=== PATIENT | male | born 1960 | race Caucasian/White ===

== ENCOUNTER 2020-07-01 06:36 | Outpatient (CLI) | payer BC, SELFPAY ==
[2020-07-01 08:03] LABS: Hematocrit 48.6 % (42.0-52.0); Hemoglobin 16.2 g/dL (14.0-18.0); Mean Corpuscular HGB Conc 33.3 g/dl (32-36); Mean Corpuscular Hemoglobin 29.9 pg (26-34); Mean Corpuscular Volume 89.8 fl (80-100); Mean Platelet Volume 9.6 fl (7.4-10.4); Platelet Count Result 233 k/mm3 (150-375); Red Blood Count 5.41 M/mm3 (4.6-6.20); Red Cell Distribution Width 13.3 % (11.5-14.5); White Blood Count 7.5 K/mm3 (4.5-10.0)
[2020-07-01 08:19] LABS: Alanine Aminotransferase 32 U/L (4-50); Albumin Level 4.6 g/dL (3.5-5.1); Alkaline Phosphatase 59 U/L (38-126); Anion Gap 9 mmol/L (8-16); Aspartate Amino Transferase 32 U/L (17-59); Bilirubin,Total 0.9 mg/dL (0.2-1.3); Blood Urea Nitrogen 19 mg/dL (9-20); Calcium 9.6 mg/dL (8.4-10.2); Carbon Dioxide 32 mmol/L (22-30); Chloride 100 mmol/L (98-107); Cholesterol 164 mg/dL (0-200); Estimated Glomerular Filt Rate > 60; Glucose 103 mg/dL (75-110); HDL Direct 33 mg/dL; Potassium 4.6 mmol/L (3.4-5.0); Sodium 141 mmol/L (137-145); Triglycerides 324 mg/dL (<150)
[2020-07-01 08:31] LABS: LDL Cholesterol Direct 95 mg/dL
[2020-07-01 08:50] LABS: Prostate Specific Antigen 2.4 ng/mL (< OR = 4.0)
== END 2020-07-01 06:37 | disposition home or self-care (01) ==
PROVIDERS: PCP Family Medicine; Visit Provider Family Medicine
DX: E78.5 Hyperlipidemia, unspecified (principal); I10 Essential (primary) hypertension; Z12.5 Encounter for screening for malignant neoplasm of prostate
CPT/HCPCS: 36415; 80053; 80061; 84153; 84443; 85027; G0103

== ENCOUNTER → 2021-09-15 09:47 | Outpatient (CLI) | payer BC, SELFPAY ==
[2021-09-15 21:02] LABS: SARS-CoV-2 RNA PCR Positive
== END ==
PROVIDERS: PCP Family Medicine; Visit Provider Nurse Practitioner Family
DX: U07.1 COVID-19 (principal)
CPT/HCPCS: C9803; U0003; U0005

== ENCOUNTER 2022-08-12 13:55 | Outpatient (CLI) | payer BC, SELFPAY ==
--- NOTE | 2022-08-12 14:01 | ECG_ITS ---
Measurements Intervals [place] Rate: 87 P: 56 WV: 158 QRS: -52 QRSD: 146 T: 3 QT: 378 QTc: 456 Interpretive Statements SINUS RHYTHM RIGHT BUNDLE BRANCH BLOCK [120+ ms QRS DURATION, UPRIGHT V1, 40+ ms S IN I/aVL/V4/V5/V6] LEFT ANTERIOR FASCICULAR BLOCK [QRS AXIS <= -45, QR IN I, RS IN II] NO PREVIOUS ECG AVAILABLE FOR COMPARISON Electronically Signed On 08-13-2022 7:41:07 [employer] by Kings Irby M.D.
== END 2022-08-12 13:56 | disposition home or self-care (01) ==
LOC: ANHLAB 13:57
PROVIDERS: PCP Family Medicine; Visit Provider Nurse Practitioner Family
DX: E78.5 Hyperlipidemia, unspecified (principal); I10 Essential (primary) hypertension; R97.20 Elevated prostate specific antigen [PSA]
CPT/HCPCS: 93005

== ENCOUNTER 2023-12-08 05:44 | Emergency (ER) | payer BC, SELFPAY ==
--- NOTE | ~2023-12-08 | XR_ITS ---
Clinical Indication: Chest pain PA and lateral views of the chest: Comparison: 05/14/2019 Findings: The lungs are clear, without evidence of focal consolidation or pleural effusion. Cardiome diastinal silhouette is within normal limits. Bones and soft tissues are unremarkable. Impression: Normal chest. Reviewed, dictated and finalized at location . Impression: Normal chest.
--- NOTE | ~2023-12-08 | US_ITS ---
EXAMINATION: US right upper quadrant DATE: 12/08/2023 08:37 INDICATION: Right upper quadrant abdominal pain. TECHNIQUE: Multiple grayscale and Doppler ultrasound images of the abdomen were obtained. COMPARISON: CT abdomen and pelvis 12/08/2023 FINDINGS: The pancreas is obscured by bowel gas. The liver is normal without focal lesion. There is n ormal flow in main portal vein. The gallbladder is normal in size and contains gallstones. No gallbla dder wall thickening or sonographic Grover sign. The common duct is normal and measures 5 mm. IMPRESSION: 1. Cholelithiasis. No evidence of acute cholecystitis. Reviewed, dictated and finalized at location [facility].
--- NOTE | ~2023-12-08 | CT_ITS ---
Non-contrast CT scan of the Abdomen and Pelvis Clinical indication: Kidney stone Technique: 2.5 mm axial scans were obtained through the abdomen and pelvis without intravenous or or al contrast. Dose reduction technique was used on this scan by utilizing automated exposure control a nd iterative reconstruction technique. The dose-length product (DLP) was 672.31 mGy-cm. Findings: Images through the lung bases reveal no abnormalities. Punctate nonobstructing right renal stone present. No left renal stone. No ureteral stone or hydronep hrosis on either side. The liver, spleen, pancreas, and adrenals appear normal. Multiple small calcified gallstones are pres ent. There are atherosclerotic calcifications of the aorta. IVC filter present. There is no evidence of bowel obstruction. There is a prominent diverticulum at the proximal transver se colon surrounding inflammatory change and mild colonic wall thickening in this region. No abscess or free air. Images through the pelvis were performed. There is no evidence of ascites or lymphadenopathy. Urinary bladder unremarkable. No pelvic mass seen. No ascites. Impression: Acute diverticulitis at the proximal transverse colon. No abscess or free air. Punctate nonobstructing right renal stone. Cholelithiasis. Reviewed, dictated and finalized at [facility]. Impression: Acute diverticulitis at the proximal transverse colon. No abscess or free air. Punctate nonobstructing right renal stone. Cholelithiasis.
--- NOTE | 2023-12-08 05:48 | ECG_ITS ---
Measurements Intervals [place] Rate: 89 P: 45 NV: 163 QRS: -52 QRSD: 141 T: 5 QT: 375 QTc: 457 Interpretive Statements SINUS RHYTHM POSSIBLE LEFT ATRIAL ENLARGEMENT [-0.1mV P WAVE IN V1/V2] RIGHT BUNDLE BRANCH BLOCK [120+ ms QRS DURATION, UPRIGHT V1, 40+ ms S IN I/aVL/V4/V5/V6] LEFT ANTERIOR FASCICULAR BLOCK [QRS AXIS <= -45, QR IN I, RS IN II] POSSIBLE LEFT VENTRICULAR HYPERTROPHY [VOLTAGE CRITERIA PLUS LAE OR QRS WIDENING] COMPARED TO ECG 08/12/2022 14:25:46 NO SIGNIFICANT CHANGES Electronically Signed On 12-08-2023 11:04:33 CDT by Fallon Cruz M.D.
[2023-12-08 05:50] VITALS: BP 126/76; PULSE 90; RESP 15; TEMP 36.6; O2SAT 97
[2023-12-08] MEDS: ASPIRIN 81 MG CHEWABLE TABLET 324 MG PO (05:57)
[2023-12-08 06:06] LABS: Basophils Percent Auto 0.2 % (0.2-1.2); Eosinophils Percent Auto 0.1 % (0-4.4); Hematocrit 56.4 % (42.0-52.0); Hemoglobin 18.4 g/dL (14.0-18.0); Immature Granulocyte Percent A 0.6 % (0-0.5); Lymphocytes Absolute Auto 1.62 K/mm3 (0.9-3.2); Lymphocytes Percent Auto 9.2 % (18.3-44.2); Mean Corpuscular HGB Conc 32.6 g/dl (32-36); Mean Corpuscular Hemoglobin 29.1 pg (26-34); Mean Corpuscular Volume 89.2 fl (80-100); Mean Platelet Volume 9.1 fl (7.4-10.4); Monocytes Percent Auto 11.5 % (2.6-8.5); Neutrophils Absolute Auto 13.8 K/mm3 (1.3-6.7); Neutrophils Percent Auto 78.4 % (45.5-73.1); Platelet Count Result 200 k/mm3 (150-375); Red Blood Count 6.32 M/mm3 (4.6-6.20); Red Cell Distribution Width 15.7 % (11.5-14.5); White Blood Count 17.6 K/mm3 (4.5-10.0)
[2023-12-08 06:17] LABS: Alanine Aminotransferase 30 U/L (6-50); Albumin Level 4.7 g/dL (3.5-5.1); Alkaline Phosphatase 57 U/L (38-126); Anion Gap 8 mmol/L (4-12); Aspartate Amino Transferase 20 U/L (17-59); Bilirubin,Total 2.3 mg/dL (0.2-1.3); Blood Urea Nitrogen 18 mg/dL (9-20); Carbon Dioxide 32 mmol/L (22-30); Chloride 98 mmol/L (98-107); Estimated CRCL calculation 52 ml/min; Estimated Glomerular Filt Rate 55; Glucose 115 mg/dL (65-110); Lipase 27 U/L (23-300); Potassium 4.2 mmol/L (3.4-5.0); Sodium 138 mmol/L (137-145)
[2023-12-08 06:28] LABS: Troponin I < 0.012 ng/mL (0.000-0.034)
[2023-12-08 06:40] LABS: INR 1.1; Prothrombin Time 14.3 Seconds (11.1-14.7)
[2023-12-08 06:41] LABS: Partial Thromboplastin Time 29.4 Seconds (22.3-36.8)
[2023-12-08 07:23] VITALS: BP 127/75; PULSE 78; RESP 20; O2SAT 94
--- NOTE | 2023-12-08 07:47 | ED.GENADULT ---
HPI - General Adult General Chief complaint: Chest Pain Stated complaint: cp, abdominal pain Time Seen by Provider: 12/08/23 06:58 History of Present Illness HPI narrative: Patient is a 63-year-old male who presents ER with multiple issues. The main issue is he developed abdominal pain last night. It is in the lower abdomen and achy. He reports he had to urinate multiple times throughout the night which is a typical form. No nausea or vomiting. He does have history of kidney stones. The last time he had a kidney stone the symptoms were more intense. Patient is also reporting some epigastric pain it has been more long-term. Denies any aggravation with eating or drinking. He also reports that he is scheduled to have cardiac stents 1 week from today. He had had a CT scan showing calcium buildup in his coronaries recently. He did have chest pain 2 days ago that went away after some nitro. He does think it may have return last night but it was more in his abdomen than in his chest. Two days ago the pain was sharp and achy in left side of the chest without radiation. He is not having exertional chest pain. No diaphoresis. No history of gallstones. Patient is tender in the right upper quadrant with guarding. Related Data Home Medications Medication Instructions Recorded Confirmed aspirin 81 mg tablet,delayed 81 mg PO DAILY 09/16/20 11/08/23 release (Adult Aspirin Regimen) anastrozole 1 mg tablet 1 mg PO .every other week 11/08/23 11/08/23 ranolazine 500 mg tablet,extended 500 mg PO Q12H 11/08/23 11/08/23 release,12 hr testosterone cypionate 200 mg/mL 140 mg IM WEEKLY 11/08/23 11/08/23 intramuscular kit Allergies Allergy/AdvReac Type Severity Reaction Status Date / Time lisinopril AdvReac Mild Cough Verified 11/08/23 07:33 Review of Systems Review of Systems: All systems reviewed & are unremarkable except as noted in HPI and below Constitutional: Constitutional: Reports no additional constitutional complaints ENT: Reports system reviewed and no additional complaints, except as documented Cardiovascular: Cardiovascular: Reports chest pain, Denies rapid heart rate and Denies radiating jaw, neck or arm pain Respiratory: Respiratory: Reports no additional respiratory complaints Gastrointestinal: Gastrointestinal: Reports abdominal pain, Denies heartburn, Denies diarrhea, Denies nausea and Denies vomiting Genitourinary: Genitourinary: Denies hematuria, Denies dysuria and Reports urinary frequency Musculoskeletal: Musculoskeletal: Reports no additional musculoskeletal complaints [facility] Past Medical History Medical History BMI 28.0-28.9,adult BMI 29.0-29.9,adult Elevated PSA History of colon polyps History of kidney stones History of melanoma History of squamous cell carcinoma Hypertension Low back pain Sleep apnea Sleep disturbance Surgical History Surgical History History of hernia repair Family History Family History Father Mother Hypertension Sibling No problems noted. Other Brain cancer Lung cancer Social History Social History (Updated 11/08/23 @ 07:35 by Julianna Armendariz) Smoking status: Never smoker Second hand tobacco smoke exposure: Yes Alcohol intake: current Alcohol use details: rarely Substance use: never Substance use type: does not use Do You Feel Safe in your Home?: Yes Lack of Transportation: No Lack of Food: Never True Current Housing: I Have Housing Concerned About Future Housing: No Difficulty Paying Gas/Electric Bills: No Difficulty Paying for Meds: No Currently Unemployed: No Education: High School Diploma/GED Difficulty w/ Childcare or Family Care: No Living arrangements: with family Occupation/Education: occupation Additional occupation/education comment
[2023-12-08] MEDS: ONDANSETRON INJ 4 MG/2 ML VIAL IV PUSH (08:03)
[2023-12-08] MEDS: MORPHINE SULFATE (*CRX) 4 MG/ML INJ IV PUSH (08:06)
[2023-12-08 09:01] VITALS: BP 112/69; PULSE 74; RESP 20; O2SAT 93
[2023-12-08 09:29] LABS: Troponin I < 0.012 ng/mL (0.000-0.034)
[2023-12-08 09:50] VITALS: TEMP 36.6
== END 2023-12-08 09:51 | disposition home or self-care (01) ==
PROVIDERS: Emergency Medicine; Emergency Provider Emergency Medicine; PCP Family Medicine
DX: K57.32 Diverticulitis of large intestine without perforation or abscess without bleeding (principal); K80.20 Calculus of gallbladder without cholecystitis without obstruction; I10 Essential (primary) hypertension; G47.30 Sleep apnea, unspecified; Z87.442 Personal history of urinary calculi; Z86.010 Personal history of colon polyps; Z85.820 Personal history of malignant melanoma of skin; Z79.82 Long term (current) use of aspirin; Z77.22 Contact with and (suspected) exposure to environmental tobacco smoke (acute) (chronic); N20.0 Calculus of kidney
CPT/HCPCS: 36415; 71046; 74176; 76705; 80053; 83690; 84484; 85025; 85610; 85730; 93005; 96374; 96375; 99284; A9270; J2270; J2405

== ENCOUNTER 2023-12-31 12:30 | Outpatient (CLI) | payer BC, SELFPAY ==
--- NOTE | ~2023-12-31 | CT_ITS ---
EXAMINATION: CT abdomen pelvis wo con DATE: 12/31/2023 13:06 INDICATION: Diverticulitis TECHNIQUE: Computed tomography (CT) of the abdomen and pelvis was performed without intravenous contr ast. Automated exposure control and iterative reconstruction technique were employed. Exam dose: 624 .63 mGy-cm total exam DLP. COMPARISON: December 08, 2023 right upper quadrant abdominal ultrasound examination December 08, 2023 CT abdomen pelvis FINDINGS: Mild discoid atelectasis or scarring at the lung bases. No pulmonary basilar consolidation. Normal heart size. Prominent coronary artery calcification. No pericardial or pleural effusion. There are multiple stones in the dependent aspect of the gallbladder up to approximately 6.7 mm. No g allbladder wall thickening or pericholecystic fluid or fat stranding. No bile duct or pancreatic duct dilatation. The liver, spleen, pancreas, and adrenal glands are unremarkable. Approximately 2 mm nonobstructing lower pole left renal calculus. No other urinary tract calculus or hydroureteronephrosis. The urinary bladder is unremarkable. Dysplastic quadrant calcification. There is extensive atherosclerotic calcification but normal caliber of the abdominal aorta. There is an IVC filter. No intraperitoneal or retroperitoneal pelvic mass lesion or adenopathy or ascites. Normal appendix. There is minimal residual pericolic fat stranding at the proximal transverse colon, with considerable improvement of the inflammatory changes noted in this area since December 08, 2023. Diverticulosis of the left and right colon. No bowel obstruction or intraperitoneal free air. Old healed bilateral pelvic fractures. No suspicious osteolytic or osteoblastic lesions. IMPRESSION: Considerable interval improvement of inflammatory change at the acute diverticulitis at the proximal transverse colon, with minimal residual pericolic inflammation Diverticulosis of the right colon Normal appendix Cholelithiasis IVC filter Reviewed, dictated and finalized at [facility]. Reviewed, dictated and finalized at location [facility]. IMPRESSION: Considerable interval improvement of inflammatory change at the ac michael diverticulitis at the proximal transverse colon, with minimal residual veronica colic inflammation Diverticulosis of the right colon Normal appendix Cholelithiasis IVC filter
== END 2023-12-31 12:31 | disposition home or self-care (01) ==
LOC: ANHIMG 12:30
PROVIDERS: PCP Family Medicine; Visit Provider Nurse Practitioner Adult Health
DX: K57.30 Diverticulosis of large intestine without perforation or abscess without bleeding (principal); K80.20 Calculus of gallbladder without cholecystitis without obstruction
CPT/HCPCS: 74176

== ENCOUNTER 2024-05-13 09:22 | Emergency (ER) | payer BC, SELFPAY ==
--- NOTE | ~2024-05-13 | CT_ITS ---
Non-contrast Head CT History: Status post fall Technique: Axial non-contrast imaging of the brain was performed. Dose reduction technique was used on this scan by utilizing automated exposure control and iterative reconstruction technique. The dose -length product (DLP) was 605.33 mGy-cm. Findings: There is no evidence of intracranial hemorrhage, mass lesion, or acute infarct. There is b ifrontal atrophy. The ventricles and subarachnoid spaces are normal in size. The calvarium appears n ormal. The visualized paranasal sinuses and mastoid air cells are clear. Impression: No acute abnormality seen. Bifrontal atrophy. Reviewed, dictated and finalized at location . Impression: No acute abnormality seen. Bifrontal atrophy.
--- NOTE | ~2024-05-13 | XR_ITS ---
AP and oblique views of the right ribs, and PA chest radiograph Clinical History: Pain Findings: No rib fracture is seen. Osseous alignment is anatomic. Lungs are clear, without focal cons olidation or pleural effusion. Cardiomediastinal contour is within normal limits. Soft tissues are un remarkable. IVC filter noted. Impression: No rib fracture is seen. Clear lungs. Reviewed, dictated and finalized at location . Impression: No rib fracture is seen. Clear lungs.
[2024-05-13 09:33] VITALS: BP 128/77; PULSE 87; RESP 17; TEMP 36.6; O2SAT 98
--- NOTE | 2024-05-13 10:42 | ED.BACK ---
HPI - Back Pain/Injury General Chief Complaint: Back Pain/Injury Stated Complaint: fall, back pain Time Seen by Provider: 05/13/24 10:40 Source: patient Mode of arrival: ambulatory Limitations: no limitations History of Present Illness HPI Narrative: Patient presents with complaint of mid/upper back pain rated 6/10 severity after a fall he sustained on . He was pulling on a tarp on the rope broke and he fell to the ground striking his back. He did not hit his head although he is on Brilinta and aspirin for history of left sided cardiac stents. He also takes a statin. He sustained an abrasion to his left elbow. He does not recall his last tetanus shot although he states it was many years ago. He underwent biopsy for skin cancer on areas of his mid back approximately 1 and half weeks ago. He denies any chest pain, shortness of breath, hematuria, or bloody stool. He has not taken any pain medications while at home. Related Data Home Medications Medication Instructions Recorded Confirmed aspirin 81 mg tablet,delayed 81 mg PO DAILY 09/16/20 01/13/24 release (Adult Aspirin Regimen) clopidogrel 75 mg tablet (Plavix) 75 mg PO DAILY 01/13/24 01/13/24 ticagrelor 90 mg tablet (Brilinta) 90 mg PO Q12H 01/13/24 Allergies Allergy/AdvReac Type Severity Reaction Status Date / Time lisinopril AdvReac Mild Cough Verified 01/13/24 07:40 [facility] Past Medical History Medical History BMI 26.0-26.9,adult Chronic anticoagulation Brilinta & 81 mg aspirin Elevated PSA Hematuria History of colon polyps History of kidney stones History of melanoma History of squamous cell carcinoma Hypertension Leukocytosis Low back pain Male hypogonadism Polycythemia Renal calculus, right Sleep apnea Sleep disturbance Surgical History Surgical History History of heart artery stent left side History of hernia repair Family History Family History (Updated 02/10/24 @ 08:34 by Caroline Josue RN) Father Mother Hypertension Lung cancer Sibling No problems noted. Other Brain cancer Social History Social History Smoking status: Never smoker Second hand tobacco smoke exposure: Yes Alcohol intake: current Alcohol use details: rarely Substance use: never Substance use type: does not use Do You Feel Safe in your Home?: Yes Lack of Transportation: No Lack of Food: Never True Current Housing: I Have Housing Concerned About Future Housing: No Difficulty Paying Gas/Electric Bills: No Difficulty Paying for Meds: No Currently Unemployed: No Education: High School Diploma/GED Difficulty w/ Childcare or Family Care: No Living arrangements: with family Occupation/Education: occupation 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 HEAD: Normocephalic, atraumatic. EYES: Non injected, non icteric ENT: Nares clear, no rhinorrhea or epistaxis. NECK: Supple. CHEST: Speaking in full sentences. No respiratory distress. Lungs clear to auscultation bilaterally without wheezes, crackles. BACK: No subcutaneous emphysema/crepitus. No obvious bony deformity although patient does have subscapular/posterior rib tenderness to palpation. No tenderness to palpation of cervical, thoracic, or lumbar spine which are midline without bony step-off. HEART: Regular rate and rhythm. . ABDOMEN: Soft, nondistended. EXTREMITIES: Normal range of motion. No lower extremity edema. SKIN: Warm, dry. Wound on left back from recent biopsy that is otherwise well healing and does not show signs of infection/induration although it is tenderness to palpation. Small well-healing ab
[2024-05-13] MEDS: TETANUS,DIPHTHERIA,AC PERTUSSIS ADULT (0.5 ML) BOOSTRIX IM (11:10)
[2024-05-13] MEDS: HYDROcodone/acetaminophen (*CRX) 5-325 MG TABLET 1 TAB PO (11:10)
[2024-05-13] MEDS: ACETAMINOPHEN 325 MG TABLET 650 MG PO (11:53)
[2024-05-13] MEDS: LIDOCAINE 5% PATCH 1 PATCH TRANSDERM (11:54)
[2024-05-13 11:59] VITALS: BP 130/85; PULSE 75; RESP 16; TEMP 36.9; O2SAT 99
== END 2024-05-13 12:01 | disposition home or self-care (01) ==
PROVIDERS: Emergency Provider Student in an Organized Health Care Education/Training Program; PCP Family Medicine
DX: G31.9 Degenerative disease of nervous system, unspecified (principal); M54.9 Dorsalgia, unspecified; Z23 Encounter for immunization; Z79.01 Long term (current) use of anticoagulants; Z87.442 Personal history of urinary calculi; I10 Essential (primary) hypertension; G47.30 Sleep apnea, unspecified; W19.XXXA Unspecified fall, initial encounter
CPT/HCPCS: 70450; 71101; 90471; 90715; 99284; A9270

== ENCOUNTER 2024-05-30 13:45 | Outpatient (RCR) | payer BC, SELFPAY | END 2024-05-30 15:51 | disposition home or self-care (01) | LOC: ANHCPREHAB 13:45 | PROVIDERS: PCP Family Medicine; Visit Provider Internal Medicine Cardiovascular Disease | DX: Z95.5 Presence of coronary angioplasty implant and graft (principal) | CPT/HCPCS: 93798 ==

== ENCOUNTER 2024-08-06 08:27 | Emergency (ER) | payer BC, SELFPAY ==
[2024-08-06 08:38] VITALS: BP 126/89; PULSE 107; RESP 18; TEMP 36.9; O2SAT 96
--- NOTE | 2024-08-06 09:06 | ED_ITS ---
HPI - Nausea/Vomiting/Diarrhea General Chief complaint: Nausea/Vomiting/Diarrhea Stated complaint: Stomach Pain/Diarrhea/Sore Throat Time Seen by Provider: 08/06/24 08:56 Source: patient and RN notes reviewed Mode of arrival: ambulatory Limitations: no limitations History of Present Illness HPI Narrative: Patient presents today complaining of a 6 day history of diarrhea, usually in the evenings. Patient states 6 +times per day. Denies blood or mucus in the stool. Denies abdominal pain, but does report ?gurgling?. States the stool was liquid, but now is loose. He has tried some Pepto twice with some relief. Denies chest pain, shortness of breath, fever. States he does have some hoarseness as well as a metallic taste and belching. History of diverticulitis, but states these current symptoms are not similar to previous diverticulitis episodes. Related Data Home Medications Medication Instructions Recorded Confirmed aspirin 81 mg tablet,delayed 81 mg PO DAILY 09/16/20 08/06/24 release (Adult Aspirin Regimen) ticagrelor 90 mg tablet (Brilinta) 90 mg PO Q12H 01/13/24 08/06/24 rosuvastatin 40 mg tablet 40 mg PO DAILY 08/06/24 08/06/24 Allergies Allergy/AdvReac Type Severity Reaction Status Date / Time lisinopril AdvReac Mild Cough Verified 08/06/24 08:38 Review of Systems Review of Systems: CONSTITUTIONAL: Denies body aches, fever, chills, or sweats. EYES: Denies visual changes, redness, or discharge. ENT: Denies rhinorrhea, congestion, sore throat, or otalgia. CARDIOVASCULAR: Denies chest pain, palpitations, or edema. RESPIRATORY: Denies cough or dyspnea. GASTROINTESTINAL: Denies abdominal pain, nausea, vomiting. + diarrhea, belching GENITOURINARY: Denies dysuria or hematuria. SKIN: Denies rash, itching, or wounds. MUSCULOSKELETAL: Denies back pain, joint pain, or myalgia. NEUROLOGIC: Denies headache, numbness, tingling, or weakness. PSYCH: Denies depression or anxiety. [facility] Past Medical History Medical History BMI 26.0-26.9,adult Chronic anticoagulation Brilinta & 81 mg aspirin Elevated PSA Hematuria History of colon polyps History of kidney stones History of melanoma History of squamous cell carcinoma Hypertension Leukocytosis Low back pain Male hypogonadism Polycythemia Renal calculus, right Sleep apnea Sleep disturbance Surgical History Surgical History History of heart artery stent left side History of hernia repair Family History Family History Father Mother Hypertension Lung cancer Sibling No problems noted. Other Brain cancer Social History Social History Smoking status: Never smoker Second hand tobacco smoke exposure: Yes Alcohol intake: current Alcohol use details: rarely Substance use: never Substance use type: does not use Do You Feel Safe in your Home?: Yes Lack of Transportation: No Lack of Food: Never True Current Housing: I Have Housing Concerned About Future Housing: No Difficulty Paying Gas/Electric Bills: No Difficulty Paying for Meds: No Currently Unemployed: No Education: High School Diploma/GED Difficulty w/ Childcare or Family Care: No Living arrangements: with family Occupation/Education: occupation 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 Please see nursing chart for further information. There is no relevant family history pertinent to the presenting complaint Exam Narrative: GENERAL: Well-appearing, well-nourished, and in no acute distress. HEAD: Normocephalic, atraumatic. EYES: EOMI. No redness or drainage. Conjunctivae normal. ENT: Mucous membranes pink and moist. Nares clear. No rhinorrhea. Throat normal. Uvula midline. NECK: Normal AROM. Supple. No lymphadenopathy. CHEST: No respiratory distress. Clear to auscultation. HEART: Regular rate and rhythm. No murmur appreciated. ABDOMEN: Soft, nontender, nondistended, normal active bowel sounds. EXTREMITIES: Normal range of motion. No edema. SKIN: Warm, dry, no rash. Capillary refill normal. Normal skin turgor. NEURO: No focal deficits. Alert and oriented x3. Gait steady. PSYCH: Normal affect. No signs of depression or anxiety. Course Course Level of Care: Express Care Visit Vital Signs Vital signs: Vital Signs Temperature 98.5 F 08/06/24 08:38 Pulse Rate 107 H 08/06/24 08:38 Respiratory Rate 18 08/06/24 08:38 Blood Pressure 126/89 08/06/24 08:38 Pulse Oximetry 96 08/06/24 08:38 Oxygen Delivery Room Air 08/06/24 08:38 Temperature 98.5 F 08/06/24 08:38 Pulse Rate 107 H 08/06/24 08:38 Respiratory Rate 18 08/06/24 08:38 Blood Pressure 126/89 08/06/24 08:38 Pulse Oximetry 96 08/06/24 08:38 Oxygen Delivery Room Air 08/06/24 08:38 Reviewed MDM - Nausea/Vomiting/Diarrhea MDM Narrative Medical decision making narrative: Patient's diarrhea seems to be coming more formed, and the hoarseness a metallic taste is likely reflux. Recommend starting some Pepcid and following up with PCP as diarrhea has been persistent for almost a week. Patient agrees with plan. Anticipatory guidance given. ED precautions given. Differential Diagnosis Differential diagnosis: Likely gastroenteritis and dehydration Critical Care Time Critical Care Time Critical Care Time: No Discharge Plan Discharge Clinical Impression: Diarrhea Patient Disposition: Home, Self-Care Condition: Stable Instructions: Acute Diarrhea (ED), Dehydration (ED) Additional Instructions: Your diarrhea should be self-limiting, please call and make an appointment with your PCP for follow-up. Please start some has some reflux medications such as Pepcid (famotidine) see if it will help with your metallic taste and belching. Continue to rest and stay hydrated. As discussed, if your symptoms worsen to include fever, abdominal pain, blood or mucus in your stool, please go to the ER immediately for further evaluation and treatment. Your blood pressure was elevated above 120/80 today at Urgent Care. This puts you above the threshold for follow up. Please schedule a followup visit with your personal physician as soon as possible, for further evaluation and treatment. Even blood pressure exceeding 120/80 may indicate pre-hypertension. Prescriptions: No Action rosuvastatin 40 mg tablet 40 mg PO DAILY aspirin [Adult Aspirin Regimen] 81 mg tablet,delayed release (DR/EC) 81 mg PO DAILY Brilinta 90 mg tablet 90 mg PO Q12H Follow-up/Referrals: Yang Cotton MD [Primary Care Provider] - Time of Disposition: 09:13
== END 2024-08-06 09:16 | disposition home or self-care (01) ==
PROVIDERS: Emergency Provider Nurse Practitioner; PCP Family Medicine
DX: R19.7 Diarrhea, unspecified (principal); I10 Essential (primary) hypertension; Z95.5 Presence of coronary angioplasty implant and graft; Z85.820 Personal history of malignant melanoma of skin; Z85.828 Personal history of other malignant neoplasm of skin; Z79.82 Long term (current) use of aspirin; Z79.01 Long term (current) use of anticoagulants
CPT/HCPCS: 99211; G0463

== ENCOUNTER 2024-09-27 15:00 | Outpatient (RCR) | payer BC, SELFPAY ==
--- NOTE | 2024-07-12 11:00 | OPREHPOC ---
Outpatient Therapy Plan of Care This is a Multidisciplinary Plan of Care that may contain components documented by all disciplines (PT, OT, and ST.) PT Problem 1 PT Problem #1 Knowledge Deficit PT Goal 1 Goal / Goal Update [place] with HEP Target Visit 4 PT Problem 2 PT Problem #2 Impaired Flexibility PT Goal 1 Goal / Goal Update Improve cesar hip abduction to 40 degrees to reduce hip capsule lateral mobility limitation Target Visit 8 PT Goal 2 Goal / Goal Update Improve cesar hip internal rotation motion to 30 degrees with reduced piriformis restriction for improved capsular motion ability for ADLs Target Visit 8 PT Problem 3 PT Problem #3 Impaired Range of Motion PT Goal 1 Goal / Goal Update Improve cesar hip extension ROM to 15 degrees to improve hip mobility to reduce spinal extension stress with ambulation Target Visit 8 PT Goal 2 Goal / Goal Update Improve cesar hip Hamstring 90/90 to -25 or better to reduce posterior pelvic pull with functional activity Target Visit 8
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
--- NOTE | 2024-08-06 11:49 | PCPTNOTE ---
Called and canceled , ill. AKS
--- NOTE | 2024-08-09 10:38 | PCPTNOTE ---
Called and canceled today, ill. ISABEL
--- NOTE | 2024-08-14 11:49 | PCPTNOTE ---
Pt did not show for today's reeval appt, he showed up 1 hour later than the scheduled time. His reeval is rescheduled for Sep.
--- NOTE | 2024-09-14 07:58 | PCPTNOTE ---
pt called and canceled reeval due to bad weather/snow.
--- NOTE | 2024-09-27 15:41 | OPREHPOC ---
Outpatient Therapy Plan of Care This is a Multidisciplinary Plan of Care that may contain components documented by all disciplines (PT, OT, and ST.) PT Problem 1 PT Problem #1 Knowledge Deficit PT Goal 1 Goal / Goal Update Dolores with HEP Target Visit 4 Progress Met PT Problem 2 PT Problem #2 Impaired Flexibility PT Goal 1 Goal / Goal Update Improve cesar hip abduction to 40 degrees to reduce hip capsule lateral mobility limitation Target Visit 8 Progress Met PT Goal 2 Goal / Goal Update Improve cesar hip internal rotation motion to 30 degrees with reduced piriformis restriction for improved capsular motion ability for ADLs Target Visit 8 Progress Met PT Problem 3 PT Problem #3 Impaired Range of Motion PT Goal 1 Goal / Goal Update Improve cesar hip extension ROM to 15 degrees to improve hip mobility to reduce spinal extension stress with ambulation Target Visit 8 Progress Met PT Goal 2 Goal / Goal Update Improve cesar hip Hamstring 90/90 to -25 or better to reduce posterior pelvic pull with functional activity Target Visit 8 Progress Met
--- NOTE | 2024-09-27 15:41 | PTOPDC ---
Assessment and note entered by [place] Driver, PT Evaluation Information Assessment Status Discharge ICD-10 Condition Codes (PT) Pain in low back M54.50,Pain in right shoulder M25 .511 Onset April 2024 Subjective Information Reports that overall he has been better but he is still getting some issues with his ribs hurting. He is seeing a chiropractor for this at this time. Overall feels comfortable with routine and feels it has significantly helped. Reported Pain Level Pain Score 0: Self Report Assessment PT Clinical Summary Patient has met all goals for therapy and is suitable for discharge to [facility] At this time. Demonstrates compliance with home stretching program. Plan of Care PT Services Indicated Yes
== END 2024-09-27 16:32 | disposition home or self-care (01) ==
LOC: ANHPT 15:00
PROVIDERS: PCP Family Medicine
DX: M25.511 Pain in right shoulder (principal); M54.50 Low back pain, unspecified
CPT/HCPCS: 97110; 97140; 97161; 97530

== ENCOUNTER 2025-03-27 11:52 | Emergency (ER) | payer OTHER, BC, SELFPAY ==
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
--- OUTSIDE RECORDS SUMMARY | 2025-03-27 11:54 | XMS_ITS | Encounter Summary ---
Author Organization [facility] Address [address] [place] [address] Phone Care Team Providers Care Wood Machinist Name Role Phone Yang Cotton MD Primary Care Provider [phone] Encounter Details Date Type Department Care Team (Late st Contact Info) Description 03/22/2025 Results Follow-Up [facility] [address] [place] [address] Ericka Carmen MD [address] [facility] [address] [place] [address] Surgical pathology Social History Tobacco Use Types Packs/Day Years Used Date Smoking Tobacco: Never Passive Smoke Exposure: Past Smokeless Tobacco: Never Alcohol Use Standard Drinks/Week Comments Yes 0 (1 standard drink = 0.6 oz pur e alcohol) AUDIT-C Answer Date Recorded Q1: How often do you have a drink containing alc ohol? Never 05/31/2024 Average Number of Drinks Not on file 024 Frequency of Binge Drinking Not on file 05/07 Personal Safety Answer Date Recorded Have you ever been in or are you currently in a harmful physical or emotional relationship or is someone making you feel afraid or unsafe? 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
--- OUTSIDE RECORDS SUMMARY | 2025-03-27 11:54 | XMS_ITS | Clinical Summary ---
Author Organization [facility] [employer] Address [address] [place] [address] Care Team Providers Care Deckhand Name Role Phone Yang Cotton MD Primary Care Provider [phone] Source Comments [facility] [employer],non-owned Affiliates and Associated Physician Practices is amultiple site organization consisting of ambulatory clinics and hospital sitesin [place], [place], [place] and [place]. This disclosure is being madepursuant to the Care Everywhere program and may not contain all information available regarding this patient. Last updated 18.[facility] Allergies No known active allergies Medications * Be aware that medications may not be up to date on this document. Alwaysverify current medications with the patient. lisinopril (PRINIVIL; ZESTRIL) 10 MG tablet Take 10 mg by mouth once daily 9 Active aspirin EC (ECOTRIN) 81 MG tablet Take 81 mg by mouth once daily Active HYDROcodone-sanjeev taminophen (NORCO) 5-325 MG tablet Take 1 tablet by mouth every 6 hours as needed for Pain 20 tablet 0 Active Additional Information Patient not taking.Reported on 10/09/2019 ibuprofen (MOTRIN) 800 MG tablet Take 1 tablet by mouth every 8 hours as needed for Pain 30 tablet 0 Active Additional Information Patient not taking.Reported on 10/09/2019 Active Problems Problem Noted Date Diagnosed Date Incarcerated incisional hernia 09/27/2019 Adhesion of abdominal wall 09/27/2019 Laparoscopic surgical procedure converted to ope n procedure 09/27/2019 Family History Medical History Relation Name Comments Cancer - Lung Mother Hypertension Mother Relation Name Status Comments Mother Social History Tobacco Use Types Packs/Day Years Used Date Smoking Tobacco: Never Smokeless Tobacco: Never Alcohol Use Standard Drinks/Week Comments Yes 0 (1 standard drink = 0.6 oz pur e alcohol) AUDIT-C Answer Date Recorded Frequency of Alcohol Consumption 2-4 times a tue09/27/2019 Average Number of Drinks 3 or 4 020 Frequency of Binge Drinking Less than monthly Sex and Gender Information Value Date Recorded Sex Assigned at Not on file Legal Sex Male 9:54 AM CDT Gender Identity Not on file Sexual Orientation Not on file Last Filed Vital Signs Vital Sign Reading Time Taken Comments Blood Pressure 153/97 09/27/2019 10:00 AM FLOOR POLISHER Pulse 92 09/27/2019 10:00 AM FLOOR POLISHER Temperature 36.6 C (97.8 F) 09/27/2019 10:00 AM FLOOR POLISHER Respiratory Rate 18 09/27/2019 10:00 AM FLOOR POLISHER Oxygen Saturation 100% 09/27/2019 10:00 AM FLOOR POLISHER Inhaled Oxygen Concentration - - Weight 88.5 kg (195 lb) 10/23/2019 1:25 PM FLOOR POLISHER Height 177.8 cm (5' 10) 10/23/2019 1:25 PM FLOOR POLISHER Body Mass Index 27.98 10/23/2019 1:25 PM FLOOR POLISHER Plan of Treatment Health Maintenance Due Date Last Done Comments COLOGUARD (AGES 45-75) - COL ON CA SCREENING 1958 COLON MONITORING 1958 COLONOSCOPY - COLON CA SCREENING 1958 CT COLONOGRAPHY - COLON CA SCREENING 1958 Colorectal Cancer Screening 1958 FIT - COLON CA SCREENING 1958 FLEX SIG - COLON CA SCREENING 1958 LIPID TESTING 1958 HEPATITIS C SCREENING 03/07/1976 DTAP/TDAP/TD VACCINES (1 - Tdap) 1977 PNEUMOCOCCAL VACCINE 50+ (1 of 1 - PCV) 2008 ZOSTER VACCINE (1 of 2) 2008 SCREENING FOR DIABETES 07/24/2019 COVID-19 VACCINE (1 - 2023-2 5 season) 2024 DEPRESSION SCREENING 09/05/2024 INFLUENZA VACCINE (#1) 2025 06/29/2019 Respiratory Syncytial Virus (RSV) Vaccine Pt: or over 60 yrs (1 - 1-dose 75+ series) 2033 HEPATITIS B VACCINE Aged Out No longe r eligible based on patient's age to complete this topic HIB VACCINE Aged Out No longer eligi ble based on patient's age to complete this topic HPV VACCINE Aged Out No longer eligi ble based on patient's age to complete this topic MENINGOCOCCAL (Group B) VACC INE SHARED DECISION-MAKING Aged Out No longer eligibl e based on patient's age to complete this topic MENINGOCOCCAL GROUPS A/C/Y/W VACCINE Aged Out No longer eligible b ased on patient's age to complete this topic Medical Devices Implanted Type Area Janitorial Assistant Device Identifier Shelf Expiration Date Model / Serial / Lot Patch Srg Sprg Opn Bioresbl Strap Tnsn Implanted:Qty: 1 on 09/27/2019 by Denise Herrera DO at [facility] 06/02/2021 [id number] / / [id number] Description:RINSED WITH STER ILE WATER. LOT #[id number], EXP 05/27 Insurance ANTHEM ANTHEM Care Teams Deckhand Relationship Specialty Start Date End Date Yang Cotton MD [address] [place] [address] PCP - General 11/03/21
--- OUTSIDE RECORDS SUMMARY | 2025-03-27 11:54 | XMS_ITS | Clinical Summary ---
Author Organization [facility] Address [address] [place] [address] Phone Care Team Providers Care Thread Inspector Name Role Phone Gurpreet Thacker MD Primary Care Provider [phone] Social History Tobacco Use Types Packs/Day Years Used Date Smoking Tobacco: Never Assessed Sex and Gender Information Value Date Recorded Sex Assigned at Not on file Legal Sex Male 3:33 PM CDT Gender Identity Not on file Sexual Orientation Not on file Plan of Treatment Health Maintenance Due Date Last Done Comments DTAP/TDAP/TD VACCINES (1 - Tdap) 1977 COLORECTAL SCREENING 2003 Colorectal Cancer Screening 2003 FIT-DNA Q 3 years 2003 FIT/FOBT Q 1 year 2003 Flex Sig/CT Colonography Q 5 years 2003 PNEUMOCOCCAL VACCINE 50+ YEARS (1 of 1 - PCV) 03/12/20 08 ZOSTER VACCINE (1 of 2) 2008 INFLUENZA VACCINE (#1) 2025 RSV VACCINE (60+ or ) (1 - 1-dose 75+ series) 2033 Insurance [employer] Care Teams Thread Inspector Relationship Specialty Start Date End Date Gurpreet Thacker MD [address] [place] [address] PCP - General Family Practice 04/18/19
[2025-03-27 11:55] VITALS: BP 150/83; PULSE 91; RESP 18; TEMP 36.4; O2SAT 99
--- OUTSIDE RECORDS SUMMARY | 2025-03-27 11:55 | XMS_ITS | Clinical Summary ---
Author Organization [facility] Address [address] [place] [id number] Care Team Providers Care Single Stroke Preformer Name Role Phone Unavailable Primary Care Provider Unavailabl e Social History Tobacco Use Types Packs/Day Years Used Date Smoking Tobacco: Never Assessed Sex and Gender Information Value Date Recorded Sex Assigned at Not on file Legal Sex Male 7:05 PM CDT Gender Identity Not on file Sexual Orientation Not on file Plan of Treatment Health Maintenance Due Date Last Done Comments Colorectal Cancer Screening Colonoscopy (10 Years) 1958 Hepatitis C 1976 DTaP, Tdap and Td Vaccines ( 1 - Tdap) 1977 Pneumococcal Vaccine: 50+ Ye ars (1 of 1 - PCV) 2008 Zoster Vaccines (1 of 2) 2008 COVID-19 Vaccine ( - 2023-2 5 season) 2024 RSV Immunization or 60+ Years (1 - 1-dose 75+ series) 2033 Meningococcal B Vaccine Aged Out No l onger eligible based on patient's age to complete this topic Meningococcal Vaccine Aged Out No miguel josefa eligible based on patient's age to complete this topic RSV Immunizations Under 20 Months Aged Out No longer eligible based on patient's age to complete this topic
--- OUTSIDE RECORDS SUMMARY | 2025-03-27 11:55 | XMS_ITS ---
Author Organization [facility] Address [address] [place] [address] Care Team Providers Care Summer Law Associate Name Role Phone Yang Cotton MD Primary Care Provider [phone] Active Problems Problem Noted Date Diagnosed Date Diverticulitis 02/13/2024 History of colon polyps 02/13/2024 Chest pain 12/15/2023 Chest tightness 10/24/2023 Abnormal nuclear stress test 10/24/2023 Screening for malignant neoplasm of colon 2019 Overview (03/25/2020): Added automatically from request for surgery [id number] Nephrolithiasis 02/26/2020 Overview (02/26/2020): Added automatically from request for surgery [id number] Incarcerated incisional hernia 09/27/2019 Laparoscopic surgical procedure converted to ope n procedure 09/27/2019 Hematuria, gross 03/30/2019 Overview (03/30/2019): Added automatically from request for surgery [id number] Renal stone 03/30/2019 Overview (03/30/2019): Added automatically from request for surgery [id number] 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, soft tissue, and skin 05/23/2018 History of nonmelanoma skin cancer 05/23/2018 Actinic keratosis 05/23/2018 Eczema 06/20/2017 Lentigo 08/24/2016 Dysplastic nevus of trunk 06/15/2016 Basal cell carcinoma (BCC) of upper extremity Benign neoplasm of skin of trunk 08/12/2015 Neoplasm of skin of scalp 08/12/2015 History of nonmelanoma skin cancer 05/20/2015 History of malignant melanoma 05/20/2015 Skin neoplasm 03/04/2015 Melanonychia 01/08/2015 Fracture of pelvis 08/21/2013 Pain of foot 08/20/2013 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 Past Treatment and Therapy Plans No past plan information found. Lifetime Dose Tracking * Chemical Lifetime Dose Automatic Entry Manual Entr y Fluoro Time 2.21 minutes 2.21 minutes 0 minutes Air kerma at the reference point (Ka,r) 606 mGy 1 mGy 605 mGy DLP 3,860 mGycm 3,860 mGycm 0 mGycm
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
--- OUTSIDE RECORDS SUMMARY | 2025-03-27 11:55 | XMS_ITS | Referral Summary ---
Author Organization [facility] Address [address] [place] [address] Care Team Providers Care Steam Tender Name Role Phone Yang Cotton MD Primary Care Provider [phone] Encounters Date Type Department Care Team Description 03/22/2025 Results Follow-Up [facility] [address] [place] [address] [phone] Ericka Carmen MD Surgical pathology 03/20/2025 Orders Only [facility] [address] [place] [address] Ericka Carmen MD Neoplasm of uncertain behavior of skin 03/19/2025 9:00 AM CDT Office Visit [facility] [address] [place] [address] [phone] Ericka Carmen MD Neoplasm of uncertain behavior of skin (Primary Dx); Actinic keratosis from Last 3 Months Allergies No known active allergies Medications testosterone [...] (03/25/2020): Added automatically from request for surgery [id number] Nephrolithiasis 02/26/2020 Overview (02/26/2020): Added automatically from request for surgery [id number] Incarcerated incisional hernia 09/27/2019 Laparoscopic surgical procedure converted to ope n procedure 09/27/2019 Hematuria, gross 03/30/2019 Overview (03/30/2019): Added automatically from request for surgery [id number] Renal stone 03/30/2019 Overview (03/30/2019): Added automatically from request for surgery [id number] 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 foot 08/20/2013 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 Immunizations Immunization Administration Dates Next Due Influenza, Quadrivalent, Spl it, Preservative Free, Intramuscular 06/29/2019 Social History Tobacco Use Types Packs/Day Years [...] on file 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 Gender Identity Male 04/21/2021 12:39 PM CDT Sexual Orientation Not on file Last Filed Vital Signs Vital Sign Reading Time Taken Comments Blood Pressure 118/70 08/24/2024 9:02 AM ELECTRIC SEALING MACHINE OPERATOR Pulse 86 08/24/2024 9:02 AM ELECTRIC SEALING MACHINE OPERATOR Temperature 36.2 C (97.2 F) 05/31/2024 8:52 AM CDT Respiratory Rate 16 08/24/2024 9:02 AM ELECTRIC SEALING MACHINE OPERATOR Oxygen Saturation 98% 08/24/2024 9:02 AM ELECTRIC SEALING MACHINE OPERATOR Inhaled Oxygen Concentration - - Weight 81.6 kg (180 lb) 08/24/2024 9:02 AM ELECTRIC SEALING MACHINE OPERATOR Height 177.8 cm (5' 10) 08/24/2024 9:02 AM ELECTRIC SEALING MACHINE OPERATOR Body Mass Index 25.83 08/24/2024 9:02 AM ELECTRIC SEALING MACHINE OPERATOR Plan of Treatment Not on file Medical Devices Implanted Type Area Welder Metal Fab Device Identifier Shelf Expiration Date Model / Serial / Lot Hardware Right: Foot Ivc Filter Groin [employer] [id number] Universa 6fr 28cm Radiopaque Soft Positioner Brick Siding Applicator Braid - [id number] Implanted:Qty: 1 on 05/08/2020 by Goldy Vizcarra MD at [facility] Explanted: 020 (Quantity not on file) [employer] 12/30/2022 [id number] / / [id number] Description:Stent(s) were ta opal out at home using a string taped to the outside of the body per op/office note. Medtronic Card Vasc Surgery 2.25 X 22mm Delmer [place] Rx Coronary Stent [id number] - [id number] Implanted:Qty: 1 on 12/15/2023 by Inder Lehman MD at [facility] Vasc Surgery [id number] / / Medtronic Card Vasc Surgery 3.0 X 30mm Clifford [place] Rx Coronary Stent [id number] - [id number] Implanted:Qty: 1 on 12/15/2023 by Inder Lehman MD at [facility] Vas Surgery [id number] / / Medtric [employer] Inc Device Vascular Closure Femoral Artery Bioabsorbable Dual Method Vascade 6-7fr Collagen [id number] - [id number] Implanted:Qty: 1 on 12/15/2023 by Inder Lehman MD at [facility] [employer] Inc [id number] / / Explanted Type Area Welder Metal Fab Device Identifier Shelf Expiration Date Model / Serial / Lot [employer] [id number] Inlay [place] 6fr 26cm Pusher Fluoro Marker Atraumatic Insertion Latex Free - [id number] Implanted:Qty: 1 on 07/05/2019 by Goldy Vizcarra MD at [facility] Explanted:Qty: 1 on 07/09/2019 Left: Ureter [employer] 08/02/2023 [id number] / / [id number] Description:Removed per offi ce/op note. [employer] [id number] Universa 6fr 28cm Radiopaque Soft Positioner Brick Siding Applicator Braid - [id number] Implanted:Qty: 1 on 05/08/2020 by Goldy Vizcarra MD at [facility] Explanted:Qty: 1 on 05/15/2020 [employer] 02/04/2023 [id number] / / [id number] Description:Stent(s) were ta opal out at home [...] shave biopsy) 03/19/2025 03/20/2025 7:15 AM CDT [facility] - 03/20/2025 4:12 PM CDT EPIC results best viewed via link to PDF [facility] Dermatopathology [place] [address], [address], [place] [address] [email or web address] Note to Patients: This report may [...] Physician Information: Ericka Carmen M.D. [address] [facility], [address] [place] [address] , DERMATOPATHOLOGY REPORT RESULTS DIAGNOSIS: SKIN, RIGHT [...] giovany/mat ICD-9 A; ZSD.232 Clerical Data A; 50703 The characteristics of special, immunohistochemical, and immunofluorescence stains and in-situ hybridization tests performed by the [facility]ermat[facility] Center were deemed acceptable in ongoing quality assurance assistant measures and in compliance with regulations drawn from the Clinical Laboratory Improvement Act jd6819 (CLIA '88). Control reactions for all stains performed were deemed adequate and appropriate by a pathologist prior to evaluation of patient tissue. Some diagnoses were rendered with the assistance of laboratory-developed tests utilizing analyte-specific reagents; the performance characteristic of these tests were determined by [facility] and are not cleared or approved by the US Food an Drug administration. Laboratory developed test may only be performed in a facility that is certified by the [facility] as a high-complexity laboratory under CLIA '88. These tests are used for clinical purposes and are not investigational. Ericka Carmen MD LAB PATHOLOGY ORDERABLES nal Result [facility]OPATHOLOGY CENTER [address] [place] [address] * Colonoscopy (05/31/2024 7:22 AM CDT) Anatomical Region Laterality Modality Other Narrative Procedure Note Phil June MD - 05/31/2024 7:22 AM CDT [facility] Patient Name: Shirley Quinn Procedure Date: 05/31/2024 7:22 AM Date of : 1960 Admit Type: Outpatient Age: 64 Gender: Male Attending MD: Phil June M.D. Room: [facility] ENDOSCOPY ROOM 02 Note Status: Finalized [...] The scope was passed under direct vision.The [id number] was introduced through the anusand advanced to the the cecum, identified byappendiceal orifice and ileocecal valve. The colonoscopy was performed with ease. The patient tolerated the procedure well. The quality of the bowelpreparation was excellent. The quality of the bowel preparation was evaluated using the BBPS ([place] BowelPreparation Scale) with scores of: Right Colon [...] On: 05/31/2024 7:22 AM Recognized by the [employer] Gastrointestinal Endoscopy for promoting quality in endoscopy us Phil June MD ENDOSCOPY PROCEDURES Final R esult * PSA diagnostic (01/19/2024 9:55 AM CDT) PSA 3.3 0.0 - 4.0 ng/mL [facility] - 01 Comment: Berna ECLIA methodology. According to the [employer] [employer], Serum PSA should decrease and [...] - 01/20/2024 11:13 AM CDT Performed at: - [facility] [id number] Solvent Plant Treater: Efrem Carter PhD, Phone: [phone] us Rafael Singh MD LAB BLOOD ORDERABLES Final Resul t [facility] - 01 from Last 3 Months or Most Recently Relevant to Health Maintenance Insurance [facility] [place] [facility] [address] [place] Advance Directives For more information, please contact: [phone] * Full Code (Latest Code Status on File) Date Activated Date Inactivated Comments 05/31/2024 6:50 AM 05/31/2024 1:37 PM * Full Code Date Activated Date Inactivated Comments 07/11/2020 8:52 AM 07/11/2020 3:02 PM Care Teams Steam Tender Relationship Specialty Start Date End Date Yang Cotton MD PCP - General Family Medicine 10/21/21
[2025-03-27 14:03] VITALS: BP 144/87; PULSE 87; TEMP 36.6; O2SAT 96
--- NOTE | 2025-03-27 16:31 | PC.NURSE ---
EDP Heather at bedside to remove pt C-collar.
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
--- OUTSIDE RECORDS SUMMARY | 2025-03-27 17:06 | XMS_ITS | Referral Summary ---
Author Organization [facility] Address [address] [place] [address] Care Team Providers Care Wing Mailer Machine Operator Name Role Phone Yang Cotton MD Primary Care Provider Encounters Date Type Department Care Team Description 03/22/2025 Results Follow-Up [facility] [address] [place] [address] [phone] Ericka Carmen MD Surgical pathology 03/20/2025 Orders Only [facility] [address] [place] [address] Ericka Carmen MD Neoplasm of uncertain behavior of skin 03/19/2025 9:00 AM CDT Office Visit [facility] [address] [place] [address] [phone] Ericka Carmen MD Neoplasm of uncertain behavior [...] (03/25/2020): Added automatically from request for surgery [id number] Nephrolithiasis 02/26/2020 Overview (02/26/2020): Added automatically from request for surgery [id number] Incarcerated incisional hernia 09/27/2019 Laparoscopic surgical procedure converted to ope n procedure 09/27/2019 Hematuria, gross 03/30/2019 Overview (03/30/2019): Added automatically from request for surgery [id number] Renal stone 03/30/2019 Overview (03/30/2019): Added automatically from request for surgery [id number] 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 on file Legal Sex Male 2:34 AM DISH MACHINE OPERATOR Gender Identity Male 04/21/2021 12:39 PM CDT Sexual Orientation Not on file Last Filed Vital Signs Vital Sign Reading Time Taken Comments Blood Pressure 118/70 08/24/2024 9:02 AM DISH MACHINE OPERATOR Pulse 86 08/24/2024 9:02 AM DISH MACHINE OPERATOR Temperature 36.2 C (97.2 F) 05/31/2024 8:52 AM CDT Respiratory Rate 16 08/24/2024 9:02 AM DISH MACHINE OPERATOR Oxygen Saturation 98% 08/24/2024 9:02 AM DISH MACHINE OPERATOR Inhaled Oxygen Concentration - - Weight 81.6 kg (180 lb) 08/24/2024 9:02 AM DISH MACHINE OPERATOR Height 177.8 cm (5' 10) 08/24/2024 9:02 AM DISH MACHINE OPERATOR Body Mass Index 25.83 08/24/2024 9:02 AM DISH MACHINE OPERATOR Plan of Treatment Not on file Medical Devices Implanted Type Area Service Order Expediter Device Identifier Shelf Expiration Date Model / Serial / Lot Hardware Right: Foot Ivc Filter Groin [employer] [id number] Universa 6fr 28cm Radiopaque Soft Positioner Supervisor Cutting Department Braid - [id number] Implanted:Qty: 1 on 05/08/2020 by Goldy Vizcarra MD at [facility] Explanted: 020 (Quantity not on file) [employer] [place] [employer] 12/30/2022 [id number] / / [id number] Description:Stent(s) were ta opal out at home using a string taped to the outside of the body per op/office note. Medtronic Card Vasc Surgery 2.25 X 22mm Delmer [place] Rx Coronary Stent [id number] - [id number] Implanted:Qty: 1 on 12/15/2023 [facility] [id number] / / Medtronic Card Vasc Surgery 3.0 X 30mm Virgil [place] Rx Coronary Stent [id number] - [id number] Implanted:Qty: 1 on 12/15/2023 by Inder Lehman MD at [facility] Vas Surgery [id number] / / [employer] Device Vascular Closure Femoral Artery Bioabsorbable Dual Method Vascade 6-7fr Collagen [id number] - [id number] Implanted:Qty: 1 on 12/15/2023 by Inder Lehman MD at [facility] [employer] [id number] / / Explanted Type Area Service Order Expediter Device Identifier Shelf Expiration Date Model / Serial / Lot [employer] [id number] Inlay [place] 6fr 26cm Pusher Fluoro Marker Atraumatic Insertion Latex Free - [id number] Implanted:Qty: 1 on 07/05/2019 by Goldy Vizcarra MD at [facility] Explanted:Qty: 1 on 07/09/2019 Left: Ureter [employer] 08/02/2023 [id number] / / [id number] Description:Removed per offi ce/op note. [employer] [id number] Universa 6fr 28cm Radiopaque Soft Positioner Supervisor Cutting Department Braid - [id number] Implanted:Qty: 1 on 05/08/2020 by Goldy Vizcarra MD at [facility] Explanted:Qty: 1 on 05/15/2020 [employer] 02/04/2023 [id number] / / [id number] Description:Stent(s) were ta opal out at home [...] shave biopsy) 03/19/2025 03/20/2025 7:15 AM CDT [facility] DERMATOPATH[facility]Y [facility] - 03/20/2025 4:12 PM CDT EPIC results best viewed via link to PDF [facility] Dermatopathology [place] [address], [address], [place] [address] [email or web address] Note to Patients: This report may [...] Submitting Physician Information: Ericka Carmen M.D. [address] [facility], [address] [place] [address] , DERMATOPATHOLOGY REPORT RESULTS DIAGNOSIS: SKIN, RIGHT [...] giovany/mat ICD-9 A; ZSD.232 Clerical Data A; 54358 The characteristics of special, immunohistochemical, and immunofluorescence stains and in-situ hybridization tests performed by the [facility] Dermatopathology Center were deemed acceptable in ongoing quality worker measures and in compliance with regulations drawn from the Clinical Laboratory Improvement Act lu6471 (CLIA '88). Control reactions for all stains performed were deemed adequate and appropriate by a pathologist prior to evaluation of patient tissue. Some diagnoses were rendered with the assistance of laboratory-developed tests utilizing analyte-specific reagents; the performance characteristic of these tests were determined by [facility] and are not cleared or approved by the US Food an Drug administration. Laboratory developed test may only be performed in a facility that is certified by the [facility] as a high-complexity laboratory under CLIA '88. These tests are used for clinical purposes and are not investigational. Ericka Carmen MD LAB PATHOLOGY ORDERABLES nal Result DERMATOPATHOLOGY CENTER [address] [place] [address] * Colonoscopy (05/31/2024 7:22 AM CDT) Anatomical Region Laterality Modality Other Narrative Procedure Note Phil June MD - 05/31/2024 7:22 AM CDT [facility] Patient Name: Shirley Quinn Procedure Date: 05/31/2024 7:22 AM Date of : 1960 Admit Type: Outpatient Age: 64 Gender: Male Attending MD: Phil June M.D. Room: [facility] ENDOSCOPY ROOM 02 Note Status: Finalized [...] The scope was passed under direct vision.The [id number] was introduced through the anusand advanced to the the cecum, identified byappendiceal orifice and ileocecal valve. The colonoscopy was performed with ease. The patient tolerated the procedure well. The quality of the bowelpreparation was excellent. The quality of the bowel preparation was evaluated using the BBPS ([place] BowelPreparation Scale) with scores of: Right Colon [...] On: 05/31/2024 7:22 AM Recognized by the [place] [employer] Gastrointestinal Endoscopy for promoting quality in endoscopy us Phil June MD ENDOSCOPY PROCEDURES Final R esult * PSA diagnostic (01/19/2024 9:55 AM CDT) PSA 3.3 0.0 - 4.0 ng/mL [facility] - 01 Comment: Berna ECLIA methodology. According to the [place] [employer], Serum PSA should decrease and [...] 01/20/2024 11:13 AM CDT Performed at: - [facility] [id number] [employer] Systems Engineer: Efrem Carter PhD, Phone: [phone] us Rafael Singh MD LAB BLOOD ORDERABLES Final Resul t [facility] - 01 from Last 3 Months or Most Recently Relevant to Health Maintenance Insurance [facility] [employer] [place] [place] [address] [employer] [place] Advance Directives For more information, please contact: [phone] * Full Code (Latest Code Status on File) Date Activated Date Inactivated Comments 05/31/2024 6:50 AM 05/31/2024 1:37 PM * Full Code Date Activated Date Inactivated Comments 07/11/2020 8:52 AM 07/11/2020 3:02 PM Care Teams Wing Mailer Machine Operator Relationship Specialty Start Date End Date Yang Cotton MD PCP - General Family Medicine 10/21/21
--- OUTSIDE RECORDS SUMMARY | 2025-03-27 17:06 | XMS_ITS ---
Author Organization [facility] Address [address] [place] [address] Care Team Providers Care Procedural Nurse Name Role Phone Yang Cotton MD Primary Care Provider [phone] Active Problems Problem Noted Date Diagnosed Date Diverticulitis 02/13/2024 History of colon polyps 02/13/2024 Chest pain 12/15/2023 Chest tightness 10/24/2023 Abnormal nuclear stress test 10/24/2023 Screening for malignant neoplasm of colon 2019 Overview (03/25/2020): Added automatically from request for surgery [id number] Nephrolithiasis 02/26/2020 Overview (02/26/2020): Added automatically from request for surgery [id number] Incarcerated incisional hernia 09/27/2019 Laparoscopic surgical procedure converted to ope n procedure 09/27/2019 Hematuria, gross 03/30/2019 Overview (03/30/2019): Added automatically from request for surgery [id number] Renal stone 03/30/2019 Overview (03/30/2019): Added automatically from request for surgery [id number] 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
--- OUTSIDE RECORDS SUMMARY | 2025-03-27 17:06 | XMS_ITS | Clinical Summary ---
Author Organization [facility] Address [address] [place] [place] [address] Phone Care Team Providers Care Sole Tacker Name Role Phone Gurpreet Thacker MD Primary Care Provider Social History Tobacco Use Types Packs/Day Years [...] series) 2033 Insurance [employer] Care Teams Sole Tacker Relationship Specialty Start Date End Date Gurpreet Thacker MD [address] [place] [address] PCP - General Family Practice 04/18/19
--- OUTSIDE RECORDS SUMMARY | 2025-03-27 17:06 | XMS_ITS | Clinical Summary ---
Author Organization [facility] [employer] Address [address] [place] [address] Care Team Providers Care Weapons Designer Name Role Phone Yang Cotton MD Primary Care Provider [phone] Allergies No known active allergies Medications testosterone [...] (03/25/2020): Added automatically from request for surgery [id number] Nephrolithiasis 02/26/2020 Overview (02/26/2020): Added automatically from request for surgery [id number] Incarcerated incisional hernia 09/27/2019 Laparoscopic surgical procedure converted to ope n procedure 09/27/2019 Hematuria, gross 03/30/2019 Overview (03/30/2019): Added automatically from request for surgery [id number] Renal stone 03/30/2019 Overview (03/30/2019): Added automatically from request for surgery [id number] 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 Care Team Description 03/22/2025 Results Follow-Up [facility] Dermatology [address] [place] [address] [phone] Ericka Carmen MD Surgical pathology 03/20/2025 Orders Only [facility] [address] [place] [address] Ericka Carmen MD Neoplasm of uncertain behavior of skin 03/19/2025 9:00 AM CDT Office Visit [facility] Dermatology [address] [place] [address] [phone] Ericka Carmen MD Neoplasm of uncertain behavior [...] on file Legal Sex Male 2:34 AM CHEMICAL TREATMENT OPERATOR Gender Identity Male 04/21/2021 12:39 PM CDT Sexual Orientation Not on file Obstetrics History Last Filed Vital Signs Vital Sign Reading Time Taken Comments Blood Pressure 118/70 08/24/2024 9:02 AM CHEMICAL TREATMENT OPERATOR Pulse 86 08/24/2024 9:02 AM CHEMICAL TREATMENT OPERATOR Temperature 36.2 C (97.2 F) 05/31/2024 8:52 AM CDT Respiratory Rate 16 08/24/2024 9:02 AM CHEMICAL TREATMENT OPERATOR Oxygen Saturation 98% 08/24/2024 9:02 AM CHEMICAL TREATMENT OPERATOR Inhaled Oxygen Concentration - - Weight 81.6 kg (180 lb) 08/24/2024 9:02 AM CHEMICAL TREATMENT OPERATOR Height 177.8 cm (5' 10) 08/24/2024 9:02 AM CHEMICAL TREATMENT OPERATOR Body Mass Index 25.83 08/24/2024 9:02 AM CHEMICAL TREATMENT OPERATOR Plan of Treatment Health Maintenance Due Date [...] 07/11/2020, 06/19/2015 Medical Devices Implanted Type Area Separator Operator Device Identifier Shelf Expiration Date Model / Serial / Lot Hardware Right: Foot Ivc Filter Groin [employer] Inc [id number] Universa 6fr 28cm Radiopaque Soft Positioner Homicide Squad Commanding Officer Braid - [id number] Implanted:Qty: 1 on 05/08/2020 by Goldy Vizcarra MD at [facility] Explanted: 020 (Quantity not on file) [employer] Inc 12/30/2022 [id number] / / [id number] Description:Stent(s) were ta opal out at home using a string taped to the outside of the body per op/office note. uTaP Card Vasc Surgery 2.25 X 22mm Delmer Bosque Rx Coronary Stent [id number] - [id number] Implanted:Qty: 1 on 12/15/2023 by Inder Lehman MD at [facility] Vasc Surgery [id number] / / Medtronic [facility] Vasc Surgery 3.0 X 30mm Delmer Bosque Rx Coronary Stent [id number] - [id number] Implanted:Qty: 1 on 12/15/2023 by Inder Lehman MD at [facility] Vasc Surgery [id number] / / Cardiva Medical Inc Device Vascular Closure Femoral Artery Bioabsorbable Dual Method Vascade 6-7fr Collagen [id number] - [id number] Implanted:Qty: 1 on 12/15/2023 by Inder Lehman MD at [facility] [employer] Inc [id number] / / Explanted Type Area Separator Operator Device Identifier Shelf Expiration Date Model / Serial / Lot [employer] [id number] Inlay [place] 6fr 26cm Pusher Fluoro Marker Atraumatic Insertion Latex Free - [id number] Implanted:Qty: 1 on 07/05/2019 by Goldy Vizcarra MD at [facility] Explanted:Qty: 1 on 07/09/2019 Left: Ureter [employer] 08/02/2023 [id number] / / [id number] Description:Removed per offi ce/op note. [employer] Inc [id number] Universa 6fr 28cm Radiopaque Soft Positioner Homicide Squad Commanding Officer Braid - [id number] Implanted:Qty: 1 on 05/08/2020 by Goldy Vizcarra MD at [facility] Explanted:Qty: 1 on 05/15/2020 [employer] Inc 02/04/2023 [id number] / / [id number] Description:Stent(s) were ta opal out at home [...] shave biopsy) 03/19/2025 03/20/2025 7:15 AM CDT [facility] DERMATOPATHOLOGY CENTER - 03/20/2025 4:12 PM CDT [facility] results best viewed via link to PDF [facility] Dermatopathology [place] [address], [place] [address] [email or web address] Note to Patients: This report may contain [...] [facility] , [place] [address] , DERMATOPATHOLOGY REPORT RESULTS DIAGNOSIS: SKIN, RIGHT [...] giovany/mat ICD-9 A; ZSD.232 Clerical Data A; 17652 The characteristics of special, immunohistochemical, and immunofluorescence stains and in-situ hybridization tests performed by the [facility] Dermatopathology Center were deemed acceptable in ongoing quality control inspector measures and in compliance with regulations drawn from the Clinical Laboratory Improvement Act et8930 (CLIA '88). Control reactions for all stains performed were deemed adequate and appropriate by a pathologist prior to evaluation of patient tissue. Some diagnoses were rendered with the assistance of laboratory-developed tests utilizing analyte-specific reagents; the performance characteristic of these tests were determined by [facility] and are not cleared or approved by the US Food an Drug administration. Laboratory developed test may only be performed in a facility that is certified by the [facility] as a high-complexity laboratory under CLIA '88. These tests are used for clinical purposes and are not investigational. Ericka Carmen MD LAB PATHOLOGY ORDERABLES Fi nal Result DERMATOPATHOLOGY CENTER [address] [place] [address] [id number] * Colonoscopy (05/31/2024 7:22 AM CDT) Anatomical Region Laterality Modality Other Narrative Procedure Note Phil June MD - 05/31/2024 7:22 AM CDT [facility] Patient Name: Shirley Quinn Procedure Date: 05/31/2024 7:22 AM Date of : 1960 Admit Type: Outpatient Age: 64 Gender: Male Attending MD: Phil June M.D. Room: [facility] ENDOSCOPY ROOM 02 Note Status: Finalized Procedure: [...] The scope was passed under direct vision.The [id number] was introduced through the anusand advanced to the the cecum, identified byappendiceal orifice and ileocecal valve. The colonoscopy was performed with ease. The patient tolerated the procedure well. The quality of the bowelpreparation was excellent. The quality of the bowel preparation was evaluated using the BBPS ([place] BowelPreparation Scale) with scores of: Right Colon [...] On: 05/31/2024 7:22 AM Recognized by the [place] Society for Gastrointestinal Endoscopy for promoting quality in endoscopy us Phil June MD ENDOSCOPY PROCEDURES Final R esult * PSA diagnostic (01/19/2024 9:55 AM CDT) PSA 3.3 0.0 - 4.0 ng/mL [facility] - 01 Comment: Berna ECLIA methodology. According to the [place] U[employer] Association, Serum PSA should decrease and [...] 11:13 AM CDT Performed at: 01 - [facility] [id number] Waste Baler: Efrem Carter PhD, Phone: [phone] us Rafael Singh MD LAB BLOOD ORDERABLES Final Resul t [facility] - 01 from Last 3 Months or Most Recently Relevant to Health Maintenance Insurance [employer] Advance Directives For more information, please contact: [phone] * Full Code (Latest Code Status on File) Date Activated Date Inactivated Comments 05/31/2024 6:50 AM 05/31/2024 1:37 PM * Full Code Date Activated Date Inactivated Comments 07/11/2020 8:52 AM 07/11/2020 3:02 PM Care Teams Weapons Designer Relationship Specialty Start Date End Date Yang Cotton MD PCP - General Family Medicine 10/21/21
--- OUTSIDE RECORDS SUMMARY | 2025-03-27 17:06 | XMS_ITS | Clinical Summary ---
Author Organization [facility] [employer] Address [address] [place] [address] Care Team Providers Care Precision Inspector Name Role Phone Yang Cotton MD Primary Care Provider [phone] Source Comments [facility] [employer],non-owned Affiliates and Associated Physician Practices is amultiple site organization consisting of ambulatory clinics and hospital sitesin [place], [place], [place] and [place]. This disclosure is being madepursuant to the Care Everywhere program and may not contain all information available regarding this patient. Last updated 18.[facility] [employer] Allergies No known active allergies Medications * [...] Comments Blood Pressure 153/97 09/27/2019 10:00 AM HYDRANT SETTER Pulse 92 09/27/2019 10:00 AM HYDRANT SETTER Temperature 36.6 C (97.8 F) 09/27/2019 10:00 AM HYDRANT SETTER Respiratory Rate 18 09/27/2019 10:00 AM HYDRANT SETTER Oxygen Saturation 100% 09/27/2019 10:00 AM HYDRANT SETTER Inhaled Oxygen Concentration - - Weight 88.5 kg (195 lb) 10/23/2019 1:25 PM HYDRANT SETTER Height 177.8 cm (5' 10) 10/23/2019 1:25 PM HYDRANT SETTER Body Mass Index 27.98 10/23/2019 1:25 PM HYDRANT SETTER Plan of Treatment Health Maintenance Due Date [...] this topic Medical Devices Implanted Type Area Pipe Stripper Device Identifier Shelf Expiration Date Model / Serial / Lot Patch Srg Sprg Opn Bioresbl Strap Tnsn Implanted:Qty: 1 on 09/27/2019 by Denise Herrera DO at [facility] Abdomen [employer] 06/02/2021 [id number] / / [id number] Description:RINSED WITH STER ILE WATER. LOT #[id number] EXP 05/27 Insurance ANTHEM ANTHEM Care Teams Precision Inspector Relationship Specialty Start Date End Date Yang Cotton MD [address] [place] [address] PCP - General 11/03/21
--- OUTSIDE RECORDS SUMMARY | 2025-03-27 17:06 | XMS_ITS | Encounter Summary ---
Author Organization [facility] Address [address] [place] [address] Phone Care Team Providers Care Director Hair Name Role Phone Yang Cotton MD Primary Care Provider [phone] Encounter Details Date Type Department Care Team (Late st Contact Info) Description 03/22/2025 Results Follow-Up [facility] Dermatology [address] [place] [address] Ericka Carmen MD [address] [facility] [address] [place] [address] Surgical pathology Social History Tobacco [...] on file 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
--- OUTSIDE RECORDS SUMMARY | 2025-03-27 17:06 | XMS_ITS | Clinical Summary ---
Author Organization [facility] Address [address] [place] [address] Care Team Providers Care Medical Assistant Secretary Name Role Phone Unavailable Primary Care Provider [...]
== END 2025-03-27 17:05 | disposition home or self-care (01) ==
LOC: ANHED 17:03
PROVIDERS: Emergency Provider Registered Nurse; PCP Family Medicine
DX: S06.0X0A Concussion without loss of consciousness, initial encounter (principal); S13.4XXA Sprain of ligaments of cervical spine, initial encounter; I10 Essential (primary) hypertension; G47.30 Sleep apnea, unspecified; Z95.5 Presence of coronary angioplasty implant and graft; Z87.442 Personal history of urinary calculi; Z86.0100 Personal history of colon polyps, unspecified; Z85.828 Personal history of other malignant neoplasm of skin; Z85.820 Personal history of malignant melanoma of skin; Z79.82 Long term (current) use of aspirin; Z79.02 Long term (current) use of antithrombotics/antiplatelets; Z79.899 Other long term (current) drug therapy; Z77.22 Contact with and (suspected) exposure to environmental tobacco smoke (acute) (chronic); V53.5XXA Driver of pick-up truck or van injured in collision with car, pick-up truck or van in traffic accident, initial encounter
CPT/HCPCS: 70450; 72125; 99284

== ENCOUNTER 2025-04-04 10:13 | Emergency (ER) | payer OTHER, BC, SELFPAY ==
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
--- OUTSIDE RECORDS SUMMARY | 2025-04-04 10:25 | XMS_ITS ---
Author Organization [facility]Deskhazard [facility] centerRegeneca World[facility] Address [address] [place] [address] Care Team Providers Care Handy Worker Name Role Phone Yang Cotton MD Primary Care Provider [phone] Active Problems Problem Noted Date Diagnosed Date Diverticulitis 02/13/2024 History of colon polyps 02/13/2024 Chest pain 12/15/2023 Chest tightness 10/24/2023 Abnormal nuclear stress test 10/24/2023 Screening for malignant neoplasm of colon 2019 Overview (03/25/2020): Added automatically from request for surgery [id number] Nephrolithiasis 02/26/2020 Overview (02/26/2020): Added automatically from request for surgery [id number] Incarcerated incisional hernia 09/27/2019 Laparoscopic surgical procedure converted to ope n procedure 09/27/2019 Hematuria, gross 03/30/2019 Overview (03/30/2019): Added automatically from request for surgery [id number] Renal stone 03/30/2019 Overview (03/30/2019): Added automatically from request for surgery [id number] 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
--- OUTSIDE RECORDS SUMMARY | 2025-04-04 10:25 | XMS_ITS | Referral Summary ---
Author Organization [facility] Address [address] [place] [address] Care Team Providers Care Supervisor Paper Machine Name Role Phone Yang Cotton MD Primary Care Provider Encounters Date Type Department Care Team Description 03/22/2025 Results Follow-Up [facility] Dermatology [address] [place] [phone] Ericka Carmen MD Surgical pathology 03/20/2025 Orders Only [facility] [address] [place] [address] Ericka Carmen MD Neoplasm of uncertain behavior of skin 03/19/2025 9:00 AM CDT Office Visit [facility] Dermatology [address] [place] [phone] Ericka Carmen MD Neoplasm of uncertain behavior [...] (03/25/2020): Added automatically from request for surgery [id number] Nephrolithiasis 02/26/2020 Overview (02/26/2020): Added automatically from request for surgery [id number] Incarcerated incisional hernia 09/27/2019 Laparoscopic surgical procedure converted to ope n procedure 09/27/2019 Hematuria, gross 03/30/2019 Overview (03/30/2019): Added automatically from request for surgery [id number] Renal stone 03/30/2019 Overview (03/30/2019): Added automatically from request for surgery [id number] 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 on file 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 Gender Identity Male 04/21/2021 12:39 PM CDT Sexual Orientation Not on file Last Filed Vital Signs Vital Sign Reading Time Taken Comments Blood Pressure 118/70 08/24/2024 9:02 AM DRUM CLEANER Pulse 86 08/24/2024 9:02 AM DRUM CLEANER Temperature 36.2 C (97.2 F) 05/31/2024 8:52 AM CDT Respiratory Rate 16 08/24/2024 9:02 AM DRUM CLEANER Oxygen Saturation 98% 08/24/2024 9:02 AM DRUM CLEANER Inhaled Oxygen Concentration - - Weight 81.6 kg (180 lb) 08/24/2024 9:02 AM DRUM CLEANER Height 177.8 cm (5' 10) 08/24/2024 9:02 AM DRUM CLEANER Body Mass Index 25.83 08/24/2024 9:02 AM DRUM CLEANER Plan of Treatment Not on file Medical Devices Implanted Type Area Information Security Analyst Device Identifier Shelf Expiration Date Model / Serial / Lot Hardware Right: Foot Ivc Filter Groin [employer] [id number] Universa 6fr 28cm Radiopaque Soft Positioner Mount Loader Braid - [id number] Implanted:Qty: 1 on 05/08/2020 by Goldy Vizcarra MD at [facility] Explanted: 020 (Quantity not on file) [employer] Inc 12/30/2022 [id number] / / [id number] Description:Stent(s) were ta opal out at home using a string taped to the outside of the body per op/office note. Medtronic Card Vasc Surgery 2.25 X 22mm Delmer Mcintosh Rx Coronary Stent [id number] - [id number] Implanted:Qty: 1 on 12/15/2023 [facility] [id number] / / Medtronic Card Vasc Surgery 3.0 X 30mm Elmira Mcintosh Rx Coronary Stent [id number] - [id number] Implanted:Qty: 1 on 12/15/2023 by Inder Lehman MD at [facility] Vas Surgery [id number] / / [employer] Device Vascular Closure Femoral Artery Bioabsorbable Dual Method Vascade 6-7fr Collagen [id number] - [id number] Implanted:Qty: 1 on 12/15/2023 by Inder Lehman MD at [facility] [employer] [id number] / / Explanted Type Area Information Security Analyst Device Identifier Shelf Expiration Date Model / Serial / Lot [employer] [id number] Inlay [place] 6fr 26cm Pusher Fluoro Marker Atraumatic Insertion Latex Free - [id number] Implanted:Qty: 1 on 07/05/2019 by Goldy Vizcarra MD at [facility] Explanted:Qty: 1 on 07/09/2019 Left: Ureter [employer] 08/02/2023 [id number] / / [id number] Description:Removed per offi ce/op note. [employer] [id number] Universa 6fr 28cm Radiopaque Soft Positioner Mount Loader Braid - [id number] Implanted:Qty: 1 on 05/08/2020 by Goldy Vizcarra MD at [facility] Explanted:Qty: 1 on 05/15/2020 [employer] Medical Inc 02/04/2023 [id number] / / [id number] Description:Stent(s) were ta opal out at home [...] shave biopsy) 03/19/2025 03/20/2025 7:15 AM CDT [facility] DERMATOPATHOLOGY CENTER - 03/20/2025 4:12 PM CDT EPIC results best viewed via link to PDF [facility] Dermatopathology [place] [address], [address], [place] [address] [email or web address] Note to Patients: This report [...] Submitting Physician Information: Ericka Carmen M.D. [address] [facility], [address] [place] [address] , DERMATOPATHOLOGY REPORT RESULTS DIAGNOSIS: SKIN, RIGHT POSTERIOR CORONADO, SHAVE BIOPSY: INFLAMED VERRUCOUS KERATOSIS goivany/ajrr By this signature, I attest that the [...] giovany/mat ICD-9 A; ZSD.232 Clerical Data A; 28717 The characteristics of special, immunohistochemical, and immunofluorescence stains and in-situ hybridization tests performed by the [facility] Dermatopathology Center were deemed acceptable in ongoing manufacturing quality manager measures and in compliance with regulations drawn from the Clinical Laboratory Improvement Act jc0311 (CLIA '88). Control reactions for all stains performed were deemed adequate and appropriate by a pathologist prior to evaluation of patient tissue. Some diagnoses were rendered with the assistance of laboratory-developed tests utilizing analyte-specific reagents; the performance characteristic of these tests were determined by [facility] and are not cleared or approved by the US Food an Drug administration. Laboratory developed test may only be performed in a facility that is certified by the [facility] as a high-complexity laboratory under CLIA '88. These tests are used for clinical purposes and are not investigational. Ericka Carmen MD LAB PATHOLOGY ORDERABLES nal Result DERMATOPATHOLOGY CENTER [address] [place] [address] * Colonoscopy (05/31/2024 7:22 AM CDT) Anatomical Region Laterality Modality Other Narrative Procedure Note Phil June MD - 05/31/2024 7:22 AM CDT [facility] Patient Name: Shirley Quinn Procedure Date: 05/31/2024 7:22 AM Date of : 1960 Admit Type: Outpatient Age: 64 Gender: Male Attending MD: Phil June M.D. Room: [facility] ENDOSCOPY ROOM 02 Note Status: Finalized [...] The scope was passed under direct vision.The [id number] was introduced through the anusand advanced to the the cecum, identified byappendiceal orifice and ileocecal valve. The colonoscopy was performed with ease. The patient tolerated the procedure well. The quality of the bowelpreparation was excellent. The quality of the bowel preparation was evaluated using the BBPS ([place] BowelPreparation Scale) with scores of: Right Colon [...] On: 05/31/2024 7:22 AM Recognized by the [place] Society for Gastrointestinal Endoscopy for promoting quality in endoscopy us Phil June MD ENDOSCOPY PROCEDURES Final R esult * PSA diagnostic (01/19/2024 9:55 AM CDT) PSA 3.3 0.0 - 4.0 ng/mL [facility] - 01 Comment: Berna ECLIA methodology. According to the [place] [employer] Association, Serum PSA should decrease and [...] 01/20/2024 11:13 AM CDT Performed at: - [facility] [id number] Scrap Kettle Tender: Efrem Carter PhD, Phone: [phone] us Rafael Singh MD LAB BLOOD ORDERABLES Final Resul t [facility] - 01 from Last 3 Months or Most Recently Relevant to Health Maintenance Insurance [facility] [place] GuerdaNEW ENGLAND [place] [address] [employer] [place] Advance Directives For more information, please contact: [phone] * Full Code (Latest Code Status on File) Date Activated Date Inactivated Comments 05/31/2024 6:50 AM 05/31/2024 1:37 PM * Full Code Date Activated Date Inactivated Comments 07/11/2020 8:52 AM 07/11/2020 3:02 PM Care Teams Supervisor Paper Machine Relationship Specialty Start Date End Date Yang Cotton MD PCP - General Family Medicine 10/21/21
--- OUTSIDE RECORDS SUMMARY | 2025-04-04 10:25 | XMS_ITS | Encounter Summary ---
Author Organization [facility] Address [address] [place] [address] Phone Care Team Providers Care Fender Mechanic Apprentice Name Role Phone Yang Cotton MD Primary Care Provider [phone] Encounter Details Date Type Department Care Team (Late st Contact Info) Description 03/22/2025 Results Follow-Up [facility] Dermatology [address] [facility] Floor [address] [place] [address] Ericka Carmen MD [address] 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
--- OUTSIDE RECORDS SUMMARY | 2025-04-04 10:25 | XMS_ITS | Clinical Summary ---
Author Organization [facility] Address [address] [place] [address] Phone Care Team Providers Care Consumer Sales Representative Name Role Phone Gurpreet Thacker MD Primary Care Provider [phone] Social History Tobacco Use Types Packs/Day Years [...] series) 2033 Insurance [employer] Care Teams Consumer Sales Representative Relationship Specialty Start Date End Date Gurpreet Thacker MD [address] [place] [address] PCP - General Family Practice 04/18/19
--- OUTSIDE RECORDS SUMMARY | 2025-04-04 10:25 | XMS_ITS | Clinical Summary ---
Author Organization [email or web address] Address [address] [facility] [place] [address] Care Team Providers Care Pre Sales Technical Engineer Name Role Phone Yang Cotton MD Primary Care Provider [phone] Source Comments [facility],non-owned Affiliates and Associated Physician Practices is amultiple site organization consisting of ambulatory clinics and hospital sitesin [place], [place], [place] and [place]. This disclosure is being madepursuant to the Care Everywhere program and may not contain all information available regarding this patient. Last updated 18.[facility] Allergies No known active allergies Medications * [...] Comments Blood Pressure 153/97 09/27/2019 10:00 AM STAFF SOFTWARE ENGINEER Pulse 92 09/27/2019 10:00 AM STAFF SOFTWARE ENGINEER Temperature 36.6 C (97.8 F) 09/27/2019 10:00 AM STAFF SOFTWARE ENGINEER Respiratory Rate 18 09/27/2019 10:00 AM STAFF SOFTWARE ENGINEER Oxygen Saturation 100% 09/27/2019 10:00 AM STAFF SOFTWARE ENGINEER Inhaled Oxygen Concentration - - Weight 88.5 kg (195 lb) 10/23/2019 1:25 PM STAFF SOFTWARE ENGINEER Height 177.8 cm (5' 10) 10/23/2019 1:25 PM STAFF SOFTWARE ENGINEER Body Mass Index 27.98 10/23/2019 1:25 PM STAFF SOFTWARE ENGINEER Plan of Treatment Health Maintenance Due Date [...] this topic Medical Devices Implanted Type Area Lighting Equipment Operator Device Identifier Shelf Expiration Date Model / Serial / Lot Patch Srg Sprg Opn Bioresbl Strap Tnsn Implanted:Qty: 1 on 09/27/2019 by Denise Herrera DO at [facility] Abdomen [employer] 06/02/2021 [id number] / / [id number] Description:RINSED WITH STER ILE WATER. LOT #[id number], EXP 05/27 Insurance [facility] Address: [facility] [id number] [place] [address] [employer] Care Teams Pre Sales Technical Engineer Relationship Specialty Start Date End Date Yang Cotton MD [address] [place] [address] PCP - General 11/03/21
--- OUTSIDE RECORDS SUMMARY | 2025-04-04 10:25 | XMS_ITS | Clinical Summary ---
Author Organization [facility] Address [address] [place] [address] Care Team Providers Care Concrete Crusher Loader Operator Name Role Phone Unavailable Primary Care Provider [...]
--- OUTSIDE RECORDS SUMMARY | 2025-04-04 10:25 | XMS_ITS | Clinical Summary ---
Author Organization [facility] Address [address] [place] [address] Care Team Providers Care Grinder Machine Knife Setter Name Role Phone Yang Cotton MD Primary Care Provider [phone] Allergies No known active allergies Medications testosterone [...] (03/25/2020): Added automatically from request for surgery [id number] Nephrolithiasis 02/26/2020 Overview (02/26/2020): Added automatically from request for surgery [id number] Incarcerated incisional hernia 09/27/2019 Laparoscopic surgical procedure converted to ope n procedure 09/27/2019 Hematuria, gross 03/30/2019 Overview (03/30/2019): Added automatically from request for surgery [id number] Renal stone 03/30/2019 Overview (03/30/2019): Added automatically from request for surgery [id number] 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 Department Care Team Description 03/22/2025 Results Follow-Up [facility] Dermatology [address] [place] [phone] Ericka Carmen MD Surgical pathology 03/20/2025 Orders Only [facility] [address] [place] [address] Ericka Carmen MD Neoplasm of uncertain behavior of skin 03/19/2025 9:00 AM CDT Office Visit [facility] Dermatology [address] [place] [phone] Ericka Carmen MD Neoplasm of uncertain behavior [...] on file Legal Sex Male 2:34 AM TUMBLING BARREL PAINTER Gender Identity Male 04/21/2021 12:39 PM CDT Sexual Orientation Not on file Obstetrics History Last Filed Vital Signs Vital Sign Reading Time Taken Comments Blood Pressure 118/70 08/24/2024 9:02 AM TUMBLING BARREL PAINTER Pulse 86 08/24/2024 9:02 AM TUMBLING BARREL PAINTER Temperature 36.2 C (97.2 F) 05/31/2024 8:52 AM CDT Respiratory Rate 16 08/24/2024 9:02 AM TUMBLING BARREL PAINTER Oxygen Saturation 98% 08/24/2024 9:02 AM TUMBLING BARREL PAINTER Inhaled Oxygen Concentration - - Weight 81.6 kg (180 lb) 08/24/2024 9:02 AM TUMBLING BARREL PAINTER Height 177.8 cm (5' 10) 08/24/2024 9:02 AM TUMBLING BARREL PAINTER Body Mass Index 25.83 08/24/2024 9:02 AM TUMBLING BARREL PAINTER Plan of Treatment Health Maintenance Due Date [...] 07/11/2020, 06/19/2015 Medical Devices Implanted Type Area Truck Striker Device Identifier Shelf Expiration Date Model / Serial / Lot Hardware Right: Foot Ivc Filter Groin [employer] [id number] Universa 6fr 28cm Radiopaque Soft Positioner Rebar Bender Braid - [id number] Implanted:Qty: 1 on 05/08/2020 by Goldy Vizcarra MD at [facility] Explanted: [id number] (Quantity not on file) [employer] 12/30/2022 [id number] / / [id number] Description:Stent(s) were ta opal out at home using a string taped to the outside of the body per op/office note. [employer] Card Vasc Surgery 2.25 X 22mm Delmer Eureka Rx Coronary Stent [id number] - [id number] Implanted:Qty: 1 on 12/15/2023 by Inder Lehman MD at [facility] Vasc Surgery [id number] / / Medtronic [facility] Vasc Surgery 3.0 X 30mm Delmer Eureka Rx Coronary Stent [id number] - [id number] Implanted:Qty: 1 on 12/15/2023 by Inder Lehman MD at [facility] Vasc Surgery [id number] / / [employer] Inc Device Vascular Closure Femoral Artery Bioabsorbable Dual Method Vascade 6-7fr Collagen [id number] - [id number] Implanted:Qty: 1 on 12/15/2023 by Inder Lehman MD at [facility] [employer] [id number] / / Explanted Type Area Truck Striker Device Identifier Shelf Expiration Date Model / Serial / Lot [employer] [id number] Inlay [place] 6fr 26cm Pusher Fluoro Marker Atraumatic Insertion Latex Free - [id number] Implanted:Qty: 1 on 07/05/2019 by Goldy Vizcarra MD at [facility] Explanted:Qty: 1 on 07/09/2019 Left: Ureter [employer] 08/02/2023 [id number] / / [id number] Description:Removed per offi ce/op note. [employer] Inc [id number] Universa 6fr 28cm Radiopaque Soft Positioner Rebar Bender Braid - [id number] Implanted:Qty: 1 on 05/08/2020 by Goldy Vizcarra MD at [facility] Explanted:Qty: 1 on 05/15/2020 [employer] 02/04/2023 [id number] / / [id number] Description:Stent(s) were ta opal out at home [...] shave biopsy) 03/19/2025 03/20/2025 7:15 AM CDT [facility] - 03/20/2025 4:12 PM CDT [facility] results best viewed via link to PDF [facility] Dermatopathology [place] [address], [place] [address] [email or web address] Note to Patients: This report may [...] Submitting Physician Information: Ericka Carmen M.D. [address] [facility] , [place] [address] , DERMATOPATHOLOGY REPORT RESULTS DIAGNOSIS: SKIN, RIGHT [...] giovany/mat ICD-9 A; ZSD.232 Clerical Data A; 02272 The characteristics of special, immunohistochemical, and immunofluorescence stains and in-situ hybridization tests performed by the [facility] were deemed acceptable in ongoing lead quality control technician measures and in compliance with regulations drawn from the Clinical Laboratory Improvement Act um2156 (CLIA '88). Control reactions for all stains performed were deemed adequate and appropriate by a pathologist prior to evaluation of patient tissue. Some diagnoses were rendered with the assistance of laboratory-developed tests utilizing analyte-specific reagents; the performance characteristic of these tests were determined by [facility] and are not cleared or approved by the [place] Food an Drug administration. Laboratory developed test may only be performed in a facility that is certified by the [facility] as a high-complexity laboratory under CLIA '88. These tests are used for clinical purposes and are not investigational. Ericka Carmen MD LAB PATHOLOGY ORDERABLES Fi nal Result DERMATOPATHOLOGY CENTER [address] [place] [id number] * Colonoscopy (05/31/2024 7:22 AM CDT) Anatomical Region Laterality Modality Other Narrative Procedure Note Phil June MD - 05/31/2024 7:22 AM CDT [facility] Patient Name: Shirley Quinn Procedure Date: 05/31/2024 7:22 AM Date of : 1960 Admit Type: Outpatient Age: 64 Gender: Male Attending MD: Phil June M.D. Room: [facility] ENDOSCOPY ROOM 02 Note Status: Finalized Procedure: [...] The scope was passed under direct vision.The [id number] was introduced through the anusand advanced to the the cecum, identified byappendiceal orifice and ileocecal valve. The colonoscopy was performed with ease. The patient tolerated the procedure well. The quality of the bowelpreparation was excellent. The quality of the bowel preparation was evaluated using the BBPS ([place] BowelPreparation Scale) with scores of: Right Colon [...] On: 05/31/2024 7:22 AM Recognized by the [place] [employer] for promoting quality in endoscopy us Phil June MD ENDOSCOPY PROCEDURES Final R esult * PSA diagnostic (01/19/2024 9:55 AM CDT) PSA 3.3 0.0 - 4.0 ng/mL [facility] - 01 Comment: Berna ECLIA methodology. According to the [place] [employer], Serum PSA should decrease and [...] 11:13 AM CDT Performed at: 01 - [facility] [id number] Medical Records Receptionist: Efrem Carter PhD, Phone: [phone] us Rafael Singh MD LAB BLOOD ORDERABLES Final Resul t [facility] - 01 from Last 3 Months or Most Recently Relevant to Health Maintenance Insurance [employer] [place] [employer] [place] [employer] [place] Advance Directives For more information, please contact: [phone] * Full Code (Latest Code Status on File) Date Activated Date Inactivated Comments 05/31/2024 6:50 AM 05/31/2024 1:37 PM * Full Code Date Activated Date Inactivated Comments 07/11/2020 8:52 AM 07/11/2020 3:02 PM Care Teams Grinder Machine Knife Setter Relationship Specialty Start Date End Date Yang Cotton MD PCP - General Family Medicine 10/21/21
[2025-04-04 10:29] VITALS: BP 139/89; PULSE 84; RESP 16; TEMP 36.8; O2SAT 98
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
--- OUTSIDE RECORDS SUMMARY | 2025-04-04 11:26 | XMS_ITS | Clinical Summary ---
Author Organization [facility] [place] Address [address] [place] [address] Care Team Providers Care Export Agent Name Role Phone Yang Cotton MD Primary Care Provider [phone] Allergies No known active allergies Medications testosterone [...] (03/25/2020): Added automatically from request for surgery [id number] Nephrolithiasis 02/26/2020 Overview (02/26/2020): Added automatically from request for surgery [id number] Incarcerated incisional hernia 09/27/2019 Laparoscopic surgical procedure converted to ope n procedure 09/27/2019 Hematuria, gross 03/30/2019 Overview (03/30/2019): Added automatically from request for surgery [id number] Renal stone 03/30/2019 Overview (03/30/2019): Added automatically from request for surgery [id number] 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 Department Care Team Description 03/22/2025 Results Follow-Up [facility] Dermatology [address] [place] [address] [phone] Ericka Carmen MD Surgical pathology 03/20/2025 Orders Only [facility] [address] [place] [address] Ericka Carmen MD Neoplasm of uncertain behavior of skin 03/19/2025 9:00 AM CDT Office Visit [facility] Dermatology [address] [place] [address] [phone] Ericka Carmen MD Neoplasm of uncertain behavior [...] on file Legal Sex Male 2:34 AM AMMONIA SOLUTION PREPARER Gender Identity Male 04/21/2021 12:39 PM CDT Sexual Orientation Not on file Obstetrics History Last Filed Vital Signs Vital Sign Reading Time Taken Comments Blood Pressure 118/70 08/24/2024 9:02 AM AMMONIA SOLUTION PREPARER Pulse 86 08/24/2024 9:02 AM AMMONIA SOLUTION PREPARER Temperature 36.2 C (97.2 F) 05/31/2024 8:52 AM CDT Respiratory Rate 16 08/24/2024 9:02 AM AMMONIA SOLUTION PREPARER Oxygen Saturation 98% 08/24/2024 9:02 AM AMMONIA SOLUTION PREPARER Inhaled Oxygen Concentration - - Weight 81.6 kg (180 lb) 08/24/2024 9:02 AM AMMONIA SOLUTION PREPARER Height 177.8 cm (5' 10) 08/24/2024 9:02 AM AMMONIA SOLUTION PREPARER Body Mass Index 25.83 08/24/2024 9:02 AM AMMONIA SOLUTION PREPARER Plan of Treatment Health Maintenance Due Date [...] 07/11/2020, 06/19/2015 Medical Devices Implanted Type Area Sleep Technologist Device Identifier Shelf Expiration Date Model / Serial / Lot Hardware Right: Foot Ivc Filter Groin [employer] Inc [id number] Universa 6fr 28cm Radiopaque Soft Positioner Claims Service Adjustor Braid - [id number] Implanted:Qty: 1 on 05/08/2020 by Goldy Vizcarra MD at [facility] Explanted: 020 (Quantity not on file) [employer] Inc 12/30/2022 [id number] / / [id number] Description:Stent(s) were ta opal out at home using a string taped to the outside of the body per op/office note. Carefx Card Vasc Surgery 2.25 X 22mm Delmer Hudspeth Rx Coronary Stent [id number] - [id number] Implanted:Qty: 1 on 12/15/2023 by Inder Lehman MD at [facility] Vasc Surgery [id number] / / Medtronic [facility] Vasc Surgery 3.0 X 30mm Delmer Hudspeth Rx Coronary Stent [id number] - [id number] Implanted:Qty: 1 on 12/15/2023 by Inder Lehman MD at [facility] Vasc Surgery [id number] / / Cardiva Medical Inc Device Vascular Closure Femoral Artery Bioabsorbable Dual Method Vascade 6-7fr Collagen [id number] - [id number] Implanted:Qty: 1 on 12/15/2023 by Inder Lehman MD at [facility] Cardiva Medical Inc [id number] / / Explanted Type Area Sleep Technologist Device Identifier Shelf Expiration Date Model / Serial / Lot [employer] [id number] Inlay [place] 6fr 26cm Pusher Fluoro Marker Atraumatic Insertion Latex Free - [id number] Implanted:Qty: 1 on 07/05/2019 by Goldy Vizcarra MD at [facility] Explanted:Qty: 1 on 07/09/2019 Left: Ureter [employer] 08/02/2023 [id number] / / [id number] Description:Removed per offi ce/op note. GruvIt Medical Inc [id number] Universa 6fr 28cm Radiopaque Soft Positioner Claims Service Adjustor Braid - [id number] Implanted:Qty: 1 on 05/08/2020 by Goldy Vizcarra MD at [facility] Explanted:Qty: 1 on 05/15/2020 Cook [employer] Inc 02/04/2023 [id number] / / [id number] Description:Stent(s) were ta opal out at home [...] shave biopsy) 03/19/2025 03/20/2025 7:15 AM CDT [facility] - 03/20/2025 4:12 PM CDT [facility] results best viewed via link to PDF [facility] Dermatopathology [place] [address], [place] [address] [email or web address] Note to Patients: This report [...] Submitting Physician Information: Ericka Carmen M.D. [address] [facility] , [place] [address] , DERMATOPATHOLOGY REPORT RESULTS DIAGNOSIS: SKIN, RIGHT [...] giovany/mat ICD-9 A; ZSD.232 Clerical Data A; 92458 The characteristics of special, immunohistochemical, and immunofluorescence stains and in-situ hybridization tests performed by the [facility] were deemed acceptable in ongoing quality systems specialist measures and in compliance with regulations drawn from the Clinical Laboratory Improvement Act ez1299 (CLIA '88). Control reactions for all stains performed were deemed adequate and appropriate by a pathologist prior to evaluation of patient tissue. Some diagnoses were rendered with the assistance of laboratory-developed tests utilizing analyte-specific reagents; the performance characteristic of these tests were determined by [facility] and are not cleared or approved by the US Food an Drug administration. Laboratory developed test may only be performed in a facility that is certified by the [facility] as a high-complexity laboratory under CLIA '88. These tests are used for clinical purposes and are not investigational. Ericka Carmen MD LAB PATHOLOGY ORDERABLES Fi nal Result DERMATOPATHOLOGY CENTER [address] [place] [address] [id number] * Colonoscopy (05/31/2024 7:22 AM CDT) Anatomical Region Laterality Modality Other Narrative Procedure Note Phil June MD - 05/31/2024 7:22 AM CDT [facility] Patient Name: Shirley Quinn Procedure Date: 05/31/2024 7:22 AM Date of : 1960 Admit Type: Outpatient Age: 64 Gender: Male Attending MD: Phil June M.D. Room: [facility] ENDOSCOPY ROOM 02 Note Status: Finalized Procedure: [...] The scope was passed under direct vision.The [id number] was introduced through the anusand advanced to the the cecum, identified byappendiceal orifice and ileocecal valve. The colonoscopy was performed with ease. The patient tolerated the procedure well. The quality of the bowelpreparation was excellent. The quality of the bowel preparation was evaluated using the BBPS (Lambert BowelPreparation Scale) with scores of: Right Colon [...] On: 05/31/2024 7:22 AM Recognized by the [place] Society for Gastrointestinal Endoscopy for promoting quality in endoscopy us Phil June MD ENDOSCOPY PROCEDURES Final R esult * PSA diagnostic (01/19/2024 9:55 AM CDT) PSA 3.3 0.0 - 4.0 ng/mL [facility] - 01 Comment: Berna ECLIA methodology. According to the [place] U[employer] Association, Serum PSA should decrease and [...] 11:13 AM CDT Performed at: 01 - [facility] [id number] Sider: Efrem Carter PhD, Phone: [phone] us Rafael Singh MD LAB BLOOD ORDERABLES Final [facility]ul t [facility] - 01 from Last 3 Months or Most Recently Relevant to Health Maintenance Insurance Sevar Consult MD Sevar Consult MD Sevar Consult MD Advance Directives For more information, please contact: [phone] * Full Code (Latest Code Status on File) Date Activated Date Inactivated Comments 05/31/2024 6:50 AM 05/31/2024 1:37 PM * Full Code Date Activated Date Inactivated Comments 07/11/2020 8:52 AM 07/11/2020 3:02 PM Care Teams Export Agent Relationship Specialty Start Date End Date Yang Cotton MD PCP - General Family Medicine 10/21/21
--- OUTSIDE RECORDS SUMMARY | 2025-04-04 11:26 | XMS_ITS | Clinical Summary ---
Author Organization [facility] Address [address] [place] [address] Care Team Providers Care Molder Meat Name Role Phone Yang Cotton MD Primary Care Provider [phone] Source Comments [facility],non-owned Affiliates and Associated Physician Practices is amultiple site organization consisting of ambulatory clinics and hospital sitesin [place], [place], [place] and [place]. This disclosure is being madepursuant to the Care Everywhere program and may not contain all information available regarding this patient. Last updated 18.[facility] Allergies No known active allergies Medications * [...] Comments Blood Pressure 153/97 09/27/2019 10:00 AM SOCIAL WORKER PALLIATIVE CARE Pulse 92 09/27/2019 10:00 AM SOCIAL WORKER PALLIATIVE CARE Temperature 36.6 C (97.8 F) 09/27/2019 10:00 AM SOCIAL WORKER PALLIATIVE CARE Respiratory Rate 18 09/27/2019 10:00 AM SOCIAL WORKER PALLIATIVE CARE Oxygen Saturation 100% 09/27/2019 10:00 AM SOCIAL WORKER PALLIATIVE CARE Inhaled Oxygen Concentration - - Weight 88.5 kg (195 lb) 10/23/2019 1:25 PM SOCIAL WORKER PALLIATIVE CARE Height 177.8 cm (5' 10) 10/23/2019 1:25 PM SOCIAL WORKER PALLIATIVE CARE Body Mass Index 27.98 10/23/2019 1:25 PM SOCIAL WORKER PALLIATIVE CARE Plan of Treatment Health Maintenance Due Date [...] this topic Medical Devices Implanted Type Area Forest Products Gatherer Device Identifier Shelf Expiration Date Model / Serial / Lot Patch Srg Sprg Opn Bioresbl Strap Tnsn Implanted:Qty: 1 on 09/27/2019 by Denise Herrera DO at [facility] Abdomen [employer] 06/02/2021 [id number] / / [id number] Description:RINSED WITH STER ILE WATER. LOT #[id number], EXP 05/27 Insurance ANTHEM ANTHEM Care Teams Molder Meat Relationship Specialty Start Date End Date Yang Cotton MD [address] [place] [address] PCP - General 11/03/21
--- OUTSIDE RECORDS SUMMARY | 2025-04-04 11:26 | XMS_ITS | Clinical Summary ---
Author Organization [facility] Address [address] [place] [address] Phone Care Team Providers Care Grain Merchandising Manager Name Role Phone Gurpreet Thacker MD Primary [...] series) 2033 Insurance [employer] Care Teams Grain Merchandising Manager Relationship Specialty Start Date End Date Gurpreet Thacker MD [address] [place] [address] PCP - General Family Practice 04/18/19
--- OUTSIDE RECORDS SUMMARY | 2025-04-04 11:26 | XMS_ITS | Clinical Summary ---
Author Organization [facility] Address [address] [place] [address] Care Team Providers Care R D Intern Name Role Phone Unavailable Primary Care Provider [...]
--- OUTSIDE RECORDS SUMMARY | 2025-04-04 11:26 | XMS_ITS | Encounter Summary ---
Author Organization [facility] Address [address] [place] [address] Phone Care Team Providers Care Staffing Manager Name Role Phone Yang Cotton MD Primary Care Provider [phone] Encounter Details Date Type Department Care Team (Late st Contact Info) Description 03/22/2025 Results Follow-Up [facility] Dermatology [address] [facility] Floor [address] [place] [address] Ericka Carmen MD [address] [facility] [address] [place] [address] Surgical pathology Social History Tobacco [...] on file Legal Sex Male 2:34 AM LIVING SPECIALIST Gender Identity Male 04/21/2021 12:39 PM CDT Sexual Orientation Not on file documented as of this encounter Miscellaneous Notes * Result Encounter Note - Patricia Anna LPN - 03/25/2025 11:40 AM CDT PT NOTIFIED documented in this encounter Plan of Treatment Not on file documented as of this encounter Visit Diagnoses Not on filedocumented in this encounter Care Teams Staffing Manager Relationship Specialty Start Date End Date Yang Cotton MD PCP - General Family Medicine 10/21/21 documented as of this encounter
--- OUTSIDE RECORDS SUMMARY | 2025-04-04 11:26 | XMS_ITS ---
Author Organization [facility] Address [address] [place] [address] Care Team Providers Care Recruiting Intern Name Role Phone Yang Cotton MD Primary Care Provider [phone] Active Problems Problem Noted Date Diagnosed Date Diverticulitis 02/13/2024 History of colon polyps 02/13/2024 Chest pain 12/15/2023 Chest tightness 10/24/2023 Abnormal nuclear stress test 10/24/2023 Screening for malignant neoplasm of colon 2019 Overview (03/25/2020): Added automatically from request for surgery [id number] Nephrolithiasis 02/26/2020 Overview (02/26/2020): Added automatically from request for surgery [id number] Incarcerated incisional hernia 09/27/2019 Laparoscopic surgical procedure converted to ope n procedure 09/27/2019 Hematuria, gross 03/30/2019 Overview (03/30/2019): Added automatically from request for surgery [id number] Renal stone 03/30/2019 Overview (03/30/2019): Added automatically from request for surgery [id number] 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
--- OUTSIDE RECORDS SUMMARY | 2025-04-04 11:26 | XMS_ITS | Referral Summary ---
Author Organization [facility] Address [address] [place] [address] Care Team Providers Care Counter Server Name Role Phone Yang Cotton MD Primary Care Provider Encounters Date Type Department Care Team Description 03/22/2025 Results Follow-Up [facility] Dermatology [address] [place] [phone] Ericka Carmen MD Surgical pathology 03/20/2025 Orders Only [facility] [address] [place] [address] Ericka Carmen MD Neoplasm of uncertain behavior of skin 03/19/2025 9:00 AM CDT Office Visit [facility] Dermatology [address] [place] [phone] Ericka Carmen MD Neoplasm of uncertain behavior [...] (03/25/2020): Added automatically from request for surgery [id number] Nephrolithiasis 02/26/2020 Overview (02/26/2020): Added automatically from request for surgery [id number] Incarcerated incisional hernia 09/27/2019 Laparoscopic surgical procedure converted to ope n procedure 09/27/2019 Hematuria, gross 03/30/2019 Overview (03/30/2019): Added automatically from request for surgery [id number] Renal stone 03/30/2019 Overview (03/30/2019): Added automatically from request for surgery [id number] 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 on file Legal Sex Male 2:34 AM 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 Gender Identity Male 04/21/2021 12:39 PM CDT Sexual Orientation Not on file Last Filed Vital Signs Vital Sign Reading Time Taken Comments Blood Pressure 118/70 08/24/2024 9:02 AM URBAN DESIGNER Pulse 86 08/24/2024 9:02 AM URBAN DESIGNER Temperature 36.2 C (97.2 F) 05/31/2024 8:52 AM CDT Respiratory Rate 16 08/24/2024 9:02 AM URBAN DESIGNER Oxygen Saturation 98% 08/24/2024 9:02 AM URBAN DESIGNER Inhaled Oxygen Concentration - - Weight 81.6 kg (180 lb) 08/24/2024 9:02 AM URBAN DESIGNER Height 177.8 cm (5' 10) 08/24/2024 9:02 AM URBAN DESIGNER Body Mass Index 25.83 08/24/2024 9:02 AM URBAN DESIGNER Plan of Treatment Not on file Medical Devices Implanted Type Area Supervisor Molding Device Identifier Shelf Expiration Date Model / Serial / Lot Hardware Right: Foot Ivc Filter Groin [employer] [id number] Universa 6fr 28cm Radiopaque Soft Positioner Railroad Purchasing Agent Braid - [id number] Implanted:Qty: 1 on 05/08/2020 by Goldy Vizcarra MD at [facility] Explanted: 020 (Quantity not on file) [employer] 12/30/2022 [id number] / / [id number] Description:Stent(s) were ta opal out at home using a string taped to the outside of the body per op/office note. Medtronic Card Vasc Surgery 2.25 X 22mm Delmer George Rx Coronary Stent [id number] - [id number] Implanted:Qty: 1 on 12/15/2023 [facility] Vasc Surgery [id number] / / Medtronic Card Vasc Surgery 3.0 X 30mm [place] George Rx Coronary Stent [id number] - [id number] Implanted:Qty: 1 on 12/15/2023 by Inder Lehman MD at [facility] Vas Surgery [id number] / / Plasticell Medical Inc Device Vascular Closure Femoral Artery Bioabsorbable Dual Method Vascade 6-7fr Collagen [id number] - [id number] Implanted:Qty: 1 on 12/15/2023 by Inder eLhman MD at [facility] Plasticell Medical Inc [id number] 5U / / Explanted Type Area Supervisor Molding Device Identifier Shelf Expiration Date Model / Serial / Lot [employer] [id number] Inlay [place] 6fr 26cm Pusher Fluoro Marker Atraumatic Insertion Latex Free - [id number] Implanted:Qty: 1 on 07/05/2019 by Goldy Vizcarra MD at [facility] Explanted:Qty: 1 on 07/09/2019 Left: Ureter [employer] 08/02/2023 [id number] / / [id number] Description:Removed per offi ce/op note. Promodity Medical Inc [id number] Universa 6fr 28cm Radiopaque Soft Positioner Railroad Purchasing Agent Braid - [id number] Implanted:Qty: 1 on 05/08/2020 by Goldy Vizcarra MD at [facility] Explanted:Qty: 1 on 05/15/2020 Promodity Medical Inc 02/04/2023 [id number] / / [id number] Description:Stent(s) were ta opal out at home [...] biopsy) 03/19/2025 03/20/2025 7:15 AM CDT [facility] DERMAT[facility] - 03/20/2025 4:12 PM CDT EPIC results best viewed via link to PDF [facility] Dermatopathology [place] [address], [place] [address] [email or web address] Note to Patients: This report may contain [...] Ericka Carmen M.D. [address] [facility], [address] [place] [address] , DERMATOPATHOLOGY REPORT RESULTS DIAGNOSIS: SKIN, RIGHT POSTERIOR CORONADO, SHAVE BIOPSY: INFLAMED VERRUCOUS KERATOSIS giovany/ajrr By this signature, I attest that the above diagnosis is based upon my personal examination of the slides(and/or other material indicated in the diagnosis). Tj Lorenzo M.D. Report Electronically Reviewed and Signed Out By jT Lorenzo M.D. 03/20/2025 16:12:41 CLINICAL INFORMATION SCC, [...] giovany/mat ICD-9 A; ZSD.232 Clerical Data A; 68180 The characteristics of special, immunohistochemical, and immunofluorescence stains and in-situ hybridization tests performed by the [facility]erm[facility] were deemed acceptable in ongoing supplier quality engineering manager measures and in compliance with regulations drawn from the Clinical Laboratory Improvement Act ag3724 (CLIA '88). Control reactions for all stains performed were deemed adequate and appropriate by a pathologist prior to evaluation of patient tissue. Some diagnoses were rendered with the assistance of laboratory-developed tests utilizing analyte-specific reagents; the performance characteristic of these tests were determined by [facility] and are not cleared or approved by the US Food an Drug administration. Laboratory developed test may only be performed in a facility that is certified by the [facility] as a high-complexity laboratory under CLIA '88. These tests are used for clinical purposes and are not investigational. Ericka Carmen MD LAB PATHOLOGY ORDERABLES nal Result DERMATOPATHOLOGY CENTER [address] [place] [address] * Colonoscopy (05/31/2024 7:22 AM CDT) Anatomical Region Laterality Modality Other Narrative Procedure Note Phil June MD - 05/31/2024 7:22 AM CDT [facility] Patient Name: Shirley Quinn Procedure Date: 05/31/2024 7:22 AM Date of : 1960 Admit Type: Outpatient Age: 64 Gender: Male Attending MD: Phil June M.D. Room: [facility] ENDOSCOPY ROOM 02 Note Status: Finalized [...] The scope was passed under direct vision.The [id number] was introduced through the anusand advanced to the the cecum, identified byappendiceal orifice and ileocecal valve. The colonoscopy was performed with ease. The patient tolerated the procedure well. The quality of the bowelpreparation was excellent. The quality of the bowel preparation was evaluated using the BBPS (Vesta BowelPreparation Scale) with scores of: Right Colon [...] On: 05/31/2024 7:22 AM Recognized by the [place] Society for Gastrointestinal Endoscopy for promoting quality in endoscopy us Phil June MD ENDOSCOPY PROCEDURES Final R esult * PSA diagnostic (01/19/2024 9:55 AM CDT) PSA 3.3 0.0 - 4.0 ng/mL [facility] - 01 Comment: Berna ECLIA methodology. According to the [place] [employer] Association, Serum PSA should decrease and [...] 01/20/2024 11:13 AM CDT Performed at: - [facility] [id number] Associate Manager: Efrem Carter PhD, Phone: [phone] us Rafael Singh MD LAB BLOOD ORDERABLES Final Resul t [facility] - 01 from Last 3 Months or Most Recently Relevant to Health Maintenance Insurance [facility] [place] [facility] [place] [address] [place] Advance Directives For more information, please contact: [phone] * Full Code (Latest Code Status on File) Date Activated Date Inactivated Comments 05/31/2024 6:50 AM 05/31/2024 1:37 PM * Full Code Date Activated Date Inactivated Comments 07/11/2020 8:52 AM 07/11/2020 3:02 PM Care Teams Counter Server Relationship Specialty Start Date End Date Yang Cotton MD PCP - General Family Medicine 10/21/21
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
== END 2025-04-04 13:19 | disposition home or self-care (01) ==
PROVIDERS: PCP Family Medicine
DX: M47.812 Spondylosis without myelopathy or radiculopathy, cervical region (principal); M54.6 Pain in thoracic spine; M54.50 Low back pain, unspecified; I10 Essential (primary) hypertension; G47.30 Sleep apnea, unspecified; Z95.5 Presence of coronary angioplasty implant and graft; Z86.0100 Personal history of colon polyps, unspecified; Z85.820 Personal history of malignant melanoma of skin; Z85.828 Personal history of other malignant neoplasm of skin; Z87.442 Personal history of urinary calculi; Z79.899 Other long term (current) drug therapy; Z79.02 Long term (current) use of antithrombotics/antiplatelets; M47.814 Spondylosis without myelopathy or radiculopathy, thoracic region; M47.816 Spondylosis without myelopathy or radiculopathy, lumbar region
CPT/HCPCS: 72125; 72128; 72131; 99284

== ENCOUNTER 2025-08-09 08:09 | Emergency (ER) | payer BC, SELFPAY ==
[2025-08-09] VITALS (8 sets, daily range): BP systolic 130–162; BP diastolic 78–92; PULSE 78–84; RESP 16; TEMP 36.6; O2SAT 94–100
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
--- NOTE | ~2025-08-09 | CT_ITS ---
CT ABDOMEN AND PELVIS WITHOUT CONTRAST Clinical History: right flank pain , kidney stone? Comparison: CT abdomen pelvis 12/31/2023 Technique: Unenhanced axial images lung bases to symphysis pubis Coronal, sagittal reformats CT images acquired with automatic exposure control for dose reduction DLP: 286 mGy-cm Findings: Without intravenous contrast, sensitivity for detecting visceral parenchymal abnormalities decreased. Lung bases: Clear. Visualized heart and pericardium: Coronary artery calcifications. Liver: Steatosis. Gallbladder: Stones. Spleen: Unremarkable. Pancreas: Unremarkable. Adrenal glands: Unremarkable. Kidneys: Right kidney- No hydronephrosis. No renal stones. Left kidney- No hydronephrosis. No renal stones. Distal esophagus/stomach: Mild distal esophageal wall thickening/esophagitis. Small bowel loops: Normal caliber and wall thickness. Colon: Diverticula. Normal caliber and wall thickness. Normal RLQ appendix. Nodes: No enlarged nodes. Peritoneum: No ascites. No free intraperitoneal air. Urinary bladder: Unremarkable. Prostate: Unremarkable. Bones: No acute bony abnormality. Soft tissues: Probable umbilical hernia mesh repair. Unopacified abdominal aorta: No aneurysmal dilatation. Atherosclerotic disease. IVC filter. Extraluminal struts. IMPRESSION: 1. No acute abnormality. 2. Findings as above. Reviewed, dictated and finalized at location R. RAL PRE NEED CONSULTANT
[2025-08-09 08:35] LABS: Hematocrit 50.6 % (42.0-52.0); Hemoglobin 16.8 g/dL (14.0-18.0); Immature Granulocyte Percent A 0.3 % (0-0.5); Lymphocytes Absolute Auto 1.63 K/mm3 (0.9-3.2); Mean Corpuscular HGB Conc 33.2 g/dl (32-36); Mean Corpuscular Hemoglobin 29.7 pg (26-34); Mean Corpuscular Volume 89.6 fl (80-100); Nucleated Red Blood Cells Absolute Auto 0.000 K/mm3 (0.0-0.012); Nucleated Red Blood Cells Perc 0.0 % (0.0-0.2); Platelet Count Result 216 k/mm3 (150-375); Red Blood Count 5.65 M/mm3 (4.6-6.20); White Blood Count 7.9 K/mm3 (4.5-10.0)
[2025-08-09 08:38] LABS: Add Urine Microscopic? YES; Appearance Urine Cloudy (Clear); Glucose Urine UA Negative (Negative); Leukocyte Esterase Ur Negative LEU/UL (Negative); Nitrate Urine Negative (Negative); Non Pathogenic Casts 0-2; Specific Grav Ur 1.015 (1.001-1.035)
[2025-08-09 08:48] LABS: Alanine Aminotransferase 35 U/L (6-50); Albumin Level 4.8 g/dL (3.5-5.1); Alkaline Phosphatase 58 U/L (38-126); Anion Gap 4 mmol/L (4-12); Aspartate Amino Transferase 35 U/L (17-59); Bilirubin,Total 1.0 mg/dL (0.2-1.3); Blood Urea Nitrogen 17 mg/dL (9-20); Calcium 9.5 mg/dL (8.4-10.2); Carbon Dioxide 32 mmol/L (22-30); Chloride 103 mmol/L (98-107); Estimated CRCL calculation 65 ml/min; Estimated Glomerular Filt Rate > 60; Glucose 97 mg/dL (65-110); Potassium 3.7 mmol/L (3.4-5.0); Sodium 139 mmol/L (137-145); Total Protein 7.9 g/dL (6.3-8.2)
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
== END 2025-08-09 09:34 | disposition home or self-care (01) ==
PROVIDERS: Emergency Provider Family Medicine; PCP Family Medicine
DX: M54.9 Dorsalgia, unspecified (principal); S80.11XA Contusion of right lower leg, initial encounter; I25.10 Atherosclerotic heart disease of native coronary artery without angina pectoris; I10 Essential (primary) hypertension; G47.30 Sleep apnea, unspecified; Z95.5 Presence of coronary angioplasty implant and graft; Z87.442 Personal history of urinary calculi; Z86.0100 Personal history of colon polyps, unspecified; Z85.828 Personal history of other malignant neoplasm of skin; Z85.820 Personal history of malignant melanoma of skin; Z77.22 Contact with and (suspected) exposure to environmental tobacco smoke (acute) (chronic); K20.90 Esophagitis, unspecified without bleeding; K80.20 Calculus of gallbladder without cholecystitis without obstruction; K76.0 Fatty (change of) liver, not elsewhere classified; X58.XXXA Exposure to other specified factors, initial encounter
CPT/HCPCS: 36415; 73590; 74176; 80053; 81001; 85025; 99284